=== PATIENT | male | born 1980 | race Caucasian/White ===

== ENCOUNTER 2023-03-12 04:01 | Inpatient (IN) | payer OTHER, SELFPAY ==
[2023-03-12] VITALS (27 sets, daily range): BP systolic 121–172; BP diastolic 57–112; PULSE 77–115; RESP 11–20; TEMP 36.6–37.1; O2SAT 93–99; BMI 33.2; BMI 32.7
--- NOTE | ~2023-03-12 | CT_ITS ---
EXAMINATION: CT HEAD WITHOUT CONTRAST CLINICAL INFORMATION: Status post CVA. COMPARISON: Head CT dated 03/12/2023. TECHNIQUE: Contiguous axial imaging was performed from the skull base to vertex without intravenous administration of contrast. Coronal and sagittal reformatted images were obtained. This CT examination was performed using dose optimization techniques as appropriate, variously including the following: *Automated exposure control *Adjustment of mA and/or kV according to patient size (this includes techniques or standardized protocols for targeted exams where dose is matched to indication/reason for exam; i.e. extremities or head) *Use of iterative reconstruction technique DLP: 656 mGy-cm FINDINGS: The cortical sulci are normal. The lateral ventricles are symmetrical. The third and fourth ventricles are in their normal midline position. The basilar and prepontine cisterns are unremarkable. There is no acute intra or extracerebral abnormality. There is no mass effect or midline shift. Sections through the bony calvarium are unremarkable. The paranasal sinuses are clear. The bony orbits and orbital contents are unremarkable. CT/CT head/brain wo IV con IMPRESSION: No acute intracranial pathology.
--- NOTE | ~2023-03-12 | CT_ITS ---
EXAMINATION: CTA NECK WITH CONTRAST (STROKE) CTA BRAIN WITH CONTRAST (STROKE) CLINICAL INFORMATION: Acute CVA, aphasia COMPARISON: Noncontrast head CT from just prior TECHNIQUE: Test bolus sequences followed by intravenous administration 70 mL of Omnipaque 350. Helical imaging was performed in the axial plane from the thoracic inlet to the skull vertex. Delayed postcontrast imaging of the head was also performed. The data was processed at the nuclear medical technologist's workstation for generation of MIP sequences. Angled MIPs and volume rendered reformatted images were also generated at an offline 3D workstation. Stenoses are assessed in accordance with NASCET criteria unless otherwise indicated. DOSE LOWERING TECHNIQUES: This CT examination was performed using dose optimization techniques as appropriate, variously including the following: - Automated exposure control - Adjustment of mA and/or kV according to patient size (this includes techniques or standardized protocols for targeted exams were dose is matched to indication/reason for exam; i.e. extremities or head) - Use of iterative reconstruction technique DLP: 1580 mGy-cm FINDINGS: Neck CTA: Normal appearance of the visualized aortic arch and proximal branches. No evidence of stenosis at the branch origins. The left vertebral artery arises off the aortic arch, an anatomic variant. Both vertebral arteries are widely patent throughout their extracranial cervical course. Normal appearance of the common and internal carotid arteries without focal stenosis. Brain CTA: Normal appearance of the intradural vertebral arteries. Normal appearance of the basilar and superior arteries. There is origin of the right posterior cerebral artery. Normal opacification of the posterior cerebral arteries bilaterally. Normal appearance of the intradural internal carotid arteries without focal stenosis. Normal appearance of the anterior cerebral and middle cerebral arteries without focal occlusion or stenosis. Normal anterior communicating artery. Normal arborization of the middle cerebral arteries. CT Head: No intracranial mass, hemorrhage, extra-axial collection, or midline shift. The child-white matter differentiation is preserved. On the delayed series there is relative hypoattenuation within some regions of the left cerebral hemisphere as compared to the right, such as the inferior left temporal lobe, though this may be artifactual in nature as this is not apparent on the CTA series. No pathologic intra-axial enhancement or regional oligemia. No hydrocephalus. The mastoid air cells and paranasal sinuses remain well aerated. CT Neck: The thyroid gland and remaining cervical soft tissues are normal in appearance. Mild disc space narrowing and endplate osteophyte formation in the lower cervical spine. Upper Chest: No abnormalities in the visualized lung apices or upper mediastinum. CT/CT angio head neck stroke IMPRESSION: 1. No large vessel occlusion or significant stenosis in the intracranial circulation. 2. Relative hypoattenuation within some regions of the left cerebral hemisphere on the delayed series may be artifactual in nature. However, in the setting of aphasia, MRI is advised for further evaluation. This critical result was discussed with Dr. Shaver on 03/12/2023 4:25 AM, and it was ascertained that the content and urgency of the report was understood at the time of direct communication.
--- NOTE | ~2023-03-12 | MR_ITS ---
MRI OF THE BRAIN WITHOUT IV CONTRAST INDICATION: Aphasia. Post tpa. COMPARISON: Head CT 03/12/2023. CTA head and neck from the same day. TECHNIQUE: Multiplanar multisequence MR imaging of the brain was obtained without IV contrast. FINDINGS: There is no hydrocephalus, extra-axial surface collection, or herniation. The major flow voids at the skull base are preserved. There is no acute infarct on diffusion-weighted imaging. There is no intracranial hemorrhage on the gradient recalled echo acquisition. Empty sella. The cerebellar tonsils are normally positioned. The cerebellum and brainstem are normal. The craniocervical junction is normal. Osseous marrow signal intensity is homogenous. The visualized soft tissues are unremarkable. MR/MR head/brain wo con IMPRESSION: No acute intracranial findings. No acute infarcts. Previously questioned CT findings within the left temporal lobe artifactually related to streak artifact. There is no parenchymal signal abnormality within the temporal lobes on MRI. Empty sella.
--- NOTE | ~2023-03-12 | CT_ITS ---
EXAMINATION: CT HEAD WITHOUT CONTRAST (STROKE PROTOCOL) INDICATION INFORMATION: Aphasia, acute CVA COMPARISON: None TECHNIQUE: Noncontrast CT of the head was performed. DLP: 890 mGy-cm DOSE LOWERING TECHNIQUES: This CT examination was performed using dose optimization techniques as appropriate, variously including the following: - Automated exposure control - Adjustment of mA and/or kV according to patient size (this includes techniques or standardized protocols for targeted exams were dose is matched to indication/reason for exam; i.e. extremities or head) - Use of iterative reconstruction technique FINDINGS: Slightly limited evaluation in some regions due to motion artifact. There is no evidence of acute intracranial hemorrhage or territorial infarction. No abnormal mass-effect or midline shift is seen. [place] to white matter differentiation is well preserved. No extra-axial fluid collections are identified. The ventricles are normal in size. There is no abnormal attenuation within the brain parenchyma. The osseous structures and soft tissues are normal. The mastoid air cells and visualized portions of the paranasal sinuses are well-aerated. CT/CT head for stroke IMPRESSION: No acute intracranial findings. This critical result was discussed with Dr. Shaver on 03/12/2023 4:25 AM, and it was ascertained that the content and urgency of the report was understood at the time of direct communication.
--- NOTE | ~2023-03-12 | CT_ITS ---
EXAMINATION: CT HEAD WITHOUT CONTRAST CLINICAL INFORMATION: Speech deficits. COMPARISON: Head CTA dated 04/01/2023. TECHNIQUE: Contiguous axial imaging was performed from the skull base to vertex without intravenous administration of contrast. Coronal and sagittal reformatted images were obtained. This CT examination was performed using dose optimization techniques as appropriate, variously including the following: *Automated exposure control *Adjustment of mA and/or kV according to patient size (this includes techniques or standardized protocols for targeted exams where dose is matched to indication/reason for exam; i.e. extremities or head) *Use of iterative reconstruction technique DLP: 684 mGy-cm FINDINGS: The cortical sulci are normal. The lateral ventricles are symmetrical. The third and fourth ventricles are in their normal midline position. The basilar and prepontine cisterns are unremarkable. There is no acute intra or extracerebral abnormality. There is no mass effect or midline shift. Sections through the bony calvarium are unremarkable. The paranasal sinuses are clear. The bony orbits and orbital contents are unremarkable. CT/CT head/brain wo IV con IMPRESSION: No acute intracranial pathology.
--- NOTE | 2023-03-12 04:04 | ECG_ITS ---
Test Reason : stroke Blood Pressure : / mmHG Vent. Rate : 100 BPM Atrial Rate : 100 BPM P-R Int : 158 ms QRS Dur : 080 ms QT Int : 372 ms P-R-T Axes : 040 012 027 degrees QTc Int : 479 ms Normal sinus rhythm Normal ECG No previous ECGs available Referred By: Oren Andre Electronically Signed By:HIRAM SMITH MD
--- NOTE | 2023-03-12 04:07 | ED.NEUROSD ---
HPI - Neuro Symptoms/Deficit General Chief Complaint: Stroke Stated Complaint: Stroke Alert Time Seen by Provider: 03/12/23 04:03 Source: EMS Mode of arrival: EMS Limitations: altered mental status History of Present Illness HPI Narrative: Patient no significant past medical history went to bed at 00:30 workup at 330 girlfriend noticed his standing next to the bed rubbing his hand not able to speak had expressive aphasia when EMS arrived no focal weakness noted no history of seizures no substance abuse Related Data Allergies Allergy/AdvReac Type Severity Reaction Status Date / Time No Known Allergies Allergy Verified 03/12/23 04:04 Review of Systems Review of Systems: Yes Unobtainable due to mental status PMFSH Social History Social History Advance Directives: No Advance Directives Information Provided: Yes Physical Exam Vital Signs: Vital Signs: Last Vital Signs Temp 98 F 03/12/23 04:02 Pulse 97 03/12/23 06:45 Resp 19 03/12/23 06:45 BP 156/111 H 03/12/23 06:45 Pulse Ox 95 03/12/23 06:45 O2 Del Method Room Air 03/12/23 06:45 BMI result Body Mass Index 33.2 Appearance: Alert. And awake No acute distress. Eyes: PERRLA, No Nystagmus ENT: Pharynx normal. Oral Mucosa moist Neck: Normal inspection. Neck supple. CVS: Normal heart rate and rhythm. Pulses normal. Respiratory: No respiratory distress. Equal air entry bilateral, no wheezing/rales/rhonchi Abdomen: Soft and nontender. Bowel sounds are present, no mass palpable, no CVA tenderness Skin: Skin warm and dry. Normal skin color. Normal skin turgor. Extremities: No lower extremity edema. No calf tenderness Neuro: Awake. No motor deficit. No sensory deficit.No cerebellar signs , cranial nerves II-XII intact severe expressive aphasia able to speak his name unable to understand any questions no facial deformity Medications Administered Discontinued Medications Generic Name Dose Route Start Last Admin Trade Name Freq PRN Reason Stop Dose Admin Alteplase, Recombinant 90 mg 03/12/23 04:22 03/12/23 04:41 Alteplase 100 Mg Vial IV 03/12/23 04:23 90 mg ONCE ONE Administration Iohexol 70 ml 03/12/23 04:27 03/12/23 04:27 Iohexol 350 Mg/Ml 100 Ml Infus..Btl IV 03/12/23 04:28 70 ml ONCE ONE Administration Medical Decision Making Medical Decision Making [facility] Narrative: 430 amPatient acute CVA onset between midnight and 04:00 with severe aphasia disease with Dr. Shelby neurologist advised tPA 6am patient post tPA talking to his girlfriend now back to normal no aphasia no motor deficit does not remember what happened? cva vs seizures case to Dr. Shelby again will stop by in the ER and evaluate the patient Lab Data [facility] Lab Attestation statement: I reviewed the patient's lab results. 03/12/23 04:35 03/12/23 04:35 Labs: Lab Results 03/12/23 03/12/23 03/12/23 Range/Units 04:06 04:35 04:35 WBC 7.6 (4.8-10.8) X10*3/uL RBC 4.86 (4.60-5.80) X10*6/uL Hgb 15.2 (14.0-18.0) g/dl Hct 43.1 (42.0-52.0) % MCV 88.7 (80.0-98.0) fL MCH 31.3 (27.0-33.0) pg MCHC 35.3 (31.0-36.0) g/dl RDW 12.3 (11.0-16.0) % Plt Count 147 L (160-400) X10*3/uL MPV 9.5 (9.4-12.4) fL Immature Gran % (Auto) 0.5 H (0.0-0.4) % Neut % (Auto) 75.4 H (45-73) % Lymph % (Auto) 13.9 L (20-40) % Latimer % (Auto) 6.5 (2-11) % Eos % (Auto) 2.9 (0-4) % Baso % (Auto) 0.8 (0-2) % Lymph # (Auto) 1.1 L (1.2-4.9) X10*3/uL Latimer # (Auto) 0.5 (0.1-1.2) X10*3/uL Eos # (Auto) 0.2 (0.0-0.4) X10*3/uL Baso # (Auto) 0.1 (0.0-0.2) X10*3/uL Abs Immat Gran (auto) 0.04 H (0.00-0.03) X10*3/uL Absolute Neuts (auto) 5.7 (2.0-8.3) x10*3/uL Absolute Nucleated RBC 0.000 (0.0-0.012) X10*3/uL Nucleated RBC % (auto) 0.0 (0.0-0.2) /100WBC PT 11.5 (10.0-13.1) SEC Whole Blood PT 12.4 (11.1-13.5) sec INR 1.0 (0.9-1.1) Whole Blood INR 1.0 (0.9-1.1) APTT 31.6 (26.0-36.4) SEC Sodium (135-145) mmol/L Potassium (3.3-5.1) mmol/L Chloride (96-108) mmol/L Carbon Dioxide (22-29) mmol/L Anion Gap (12-20) BUN (9-16) mg/dL Creatinine (0.5-1.4) mg/dL Estim Creat Clear Calc Estimated GFR Random Glucose (60-115) mg/dL Calcium (8.4-10.2) mg/dL Total Creatine Kinase (38-174) U/L Troponin I High Sens (<3.5-35.0) ng/L 03/12/23 03/12/23 Range/Units 04:35 04:35 WBC (4.8-10.8) X10*3/uL RBC (4.60-5.80) X10*6/uL Hgb (14.0-18.0) g/dl Hct (42.0-52.0) % MCV (80.0-98.0) fL MCH (27.0-33.0) pg MCHC (31.0-36.0) g/dl RDW (11.0-16.0) % Plt Count (160-400) X10*3/uL MPV (9.4-12.4) fL Immature Gran % (Auto) (0.0-0.4) % Neut % (Auto) (45-73) % Lymph % (Auto) (20-40) % Latimer % (Auto) (2-11) % Eos % (Auto) (0-4) % Baso % (Auto) (0-2) % Lymph # (Auto) (1.2-4.9) X10*3/uL Latimer # (Auto) (0.1-1.2) X10*3/uL Eos # (Auto) (0.0-0.4) X10*3/uL Baso # (Auto) (0.0-0.2) X10*3/uL Abs Immat Gran (auto) (0.00-0.03) X10*3/uL Absolute Neuts (auto) (2.0-8.3) x10*3/uL Absolute Nucleated RBC (0.0-0.012) X10*3/uL Nucleated RBC % (auto) (0.0-0.2) /100WBC PT (10.0-13.1) SEC Whole Blood PT (11.1-13.5) sec INR (0.9-1.1) Whole Blood INR (0.9-1.1) APTT (26.0-36.4) SEC Sodium 141 (135-145) mmol/L Potassium 4.2 (3.3-5.1) mmol/L Chloride 107 (96-108) mmol/L Carbon Dioxide 25 (22-29) mmol/L Anion Gap 13 (12-20) BUN 13 (9-16) mg/dL Creatinine 1.12 (0.5-1.4) mg/dL Estim Creat Clear Calc 111.6 Estimated GFR > 60 Random Glucose 118 H (60-115) mg/dL Calcium 9.2 (8.4-10.2) mg/dL Total Creatine Kinase 75 (38-174) U/L Troponin I High Sens < 2.7 (<3.5-35.0) ng/L Independent Interpretation I performed an independent interpretation of an: EKG Interpretation: Normal sinus rhythm heart rate 100 beats per minute normal interval normal axis no acute ST-T no acute ischemic Radiology Impression Discussion of test interpretation with radiology: I discussed test interpretation with the radiologist and I have reviewed the radiologist's reading. Radiologist Impression: CT/CT angio head? neck stroke IMPRESSION: 1.? No large vessel occlusion or significant stenosis in the intracranial circulation. 2.? Relative hypoattenuation within some regions of the left cerebral hemisphere on the delayed series may be artifactual in nature. However, in the setting of aphasia, MRI is advised for further evaluation. ? This critical result was discussed with Dr. Shaver on 03/12/2023 4:25 AM, and it was ascertained that the content and urgency of the report was understood at the time of direct communication. NIH Stroke Scale Internal: Initial- Upon Arrival Time: 04:06 Level of Consciousness: Alert Level of Consciousness Questions: Answers neither question correctly Level of Consciousness Commands: Performs neither task correctly Best Gaze: Normal Visual: No visual loss Facial Palsy: Normal Motor Arm (Right): No drift Motor Arm (Left): No drift Motor Leg (Right): No drift Motor Leg (Left): No drift Limb Ataxia: Absent Sensory: Normal Best Language: Severe aphasia Dysarthia: Mild to moderate dysarthria Extinction and Inattention: No abnormality Score: 7 Discharge Plan Discharge Clinical Impression: Cerebrovascular accident Patient Disposition: Still a Patient
[2023-03-12 04:11] LABS: Prothrombin Time Whole Bld POC 12.4 sec (11.1-13.5)
[2023-03-12] MEDS: iohexoL 350 MG/ML 100 ML INFUS..BTL 70 ML IV (04:27)
[2023-03-12 04:40] LABS: Basophils Absolute Auto 0.1 X10*3/uL (0.0-0.2); Basophils Percent Auto 0.8 % (0-2); Eosinophils Absolute Auto 0.2 X10*3/uL (0.0-0.4); Eosinophils Percent Auto 2.9 % (0-4); Hematocrit 43.1 % (42.0-52.0); Hemoglobin 15.2 g/dl (14.0-18.0); Imm Gran Abs Auto 0.04 X10*3/uL (0.00-0.03); Imm Gran Pct Auto 0.5 % (0.0-0.4); Lymphocytes Absolute Auto 1.1 X10*3/uL (1.2-4.9); Lymphocytes Percent Auto 13.9 % (20-40); MANUAL DIFF FLAG NO; Mean Corpuscular HGB Conc 35.3 g/dl (31.0-36.0); Mean Corpuscular Hemoglobin 31.3 pg (27.0-33.0); Mean Corpuscular Volume 88.7 fL (80.0-98.0); Mean Platelet Volume 9.5 fL (9.4-12.4); Monocytes Absolute Auto 0.5 X10*3/uL (0.1-1.2); Monocytes Percent Auto 6.5 % (2-11); Neutrophils Absolute Auto 5.7 x10*3/uL (2.0-8.3); Neutrophils Percent Auto 75.4 % (45-73); Platelet Count 147 X10*3/uL (160-400); Red Blood Count 4.86 X10*6/uL (4.60-5.80); Red Cell Distribution Width 12.3 % (11.0-16.0); White Blood Count 7.6 X10*3/uL (4.8-10.8)
--- NOTE | 2023-03-12 04:41 | PC.NURSE ---
9 mg TPA bolus administered at this time.
--- NOTE | 2023-03-12 04:42 | PC.NURSE ---
81 mg Tpa infusion initiated at this time.
--- NOTE | 2023-03-12 04:44 | PC.NURSE ---
9 mg TPA bolus administered at this time.
[2023-03-12 04:49] LABS: Prothrombin Time 11.5 SEC (10.0-13.1)
[2023-03-12 04:52] LABS: Partial Thromboplastin Time 31.6 SEC (26.0-36.4)
[2023-03-12 04:57] LABS: Anion Gap 13 (12-20); Blood Urea Nitrogen 13 mg/dL (9-16); Calcium 9.2 mg/dL (8.4-10.2); Carbon Dioxide 25 mmol/L (22-29); Chloride 107 mmol/L (96-108); Creatinine Clr Calc Pharmacy 111.6; Estimated Glomerular Filt Rate > 60; Glucose Random 118 mg/dL (60-115); Potassium 4.2 mmol/L (3.3-5.1); Sodium 141 mmol/L (135-145)
[2023-03-12 05:00] LABS: Troponin-I High Sensitivity < 2.7 ng/L (<3.5-35.0)
[2023-03-12 05:01] LABS: Stroke Lab Use COMPLETE
--- NOTE | 2023-03-12 05:15 | PC.NURSE ---
Pt with memory improvement at this time. Now alert and oriented to person, place. Unsure of situation and exact time but however able to tell this RN month and year.
--- NOTE | 2023-03-12 05:40 | PC.NURSE ---
Pt again noted to be diaphoretic. Denies any pain. Mental status unchanged.
--- NOTE | 2023-03-12 06:51 | PC.NURSE ---
Bruise forming to right lower leg proximal to knee. Per significant other at bedside, pt hit same leg on nightstand earlier in the morning.
--- NOTE | 2023-03-12 07:00 | CA_ITS ---
Transthoracic Echocardiogram Patient (Last, First, Middle): Bandar Marquez, Gender: Male Date of : 1980 Age: 42 Procedure Date: 03/12/2023 Procedure Type: Transthoracic Echocardiogram Location: ICU Height: 182.88 cm Weight: 110.68 kg BSA: 2.32 m2 Heart Rate: bpm BP: 147 / 88 mmHg Inspector Watch Parts: Referring MD: Omaira Castillo MD Head Of History: Shree Vazquez MD Symptoms: acute cva, needs bubble Study Quality: Good ECG Rhythm: Sinus Conclusions: - 1. Normal LV systolic function with normal diastolic filling pattern 2. Possible PFO noted on bubble contrast study, recommend JENNIFFER 3. Normal cardiac valvular Dopplers next 4. Normal RV systolic pressure 5. No gross pericardial effusion Findings Left Ventricle Normal left ventricular size, thickness, and systolic function. The visually estimated ejection fraction is between 60-65%. Spectral Doppler is indicative of a normal filling pattern. E/E prime ratio is <8, consistent with normal filling pressures. Right Ventricle Normal right ventricular cavity size and systolic function. Atria Both atria are normal in size. Contrast study for right to left shunting is mildly positive. Patent foramen ovale detected using by contrast. There is evidence of a patent foramen ovale with right to left shunting. Aortic Valve The aortic valve structure and function is likely normal. There is no aortic valve stenosis. There is no aortic valve regurgitation. Mitral Valve Normal mitral valve structure and function. There is trace mitral valve regurgitation. There is no mitral valve stenosis. Pulmonic Valve The pulmonic valve is likely normal. Tricuspid Valve Normal tricuspid valve structure. There is trace tricuspid valve regurgitation. The right ventricular systolic pressure is normal. The right ventricular systolic pressure is 21 mmHg. Normal right atrial pressure. There is no evidence of pulmonary hypertension. Great Vessels All visible segments of the aorta are normal in size. The pulmonary artery was not well visualized. Venous The inferior vena cava is normal in size and collapses greater than 50% with inspiration. Pericardium/Pleural There is no evidence of pericardial effusion. Recommendations, Care & Conclusions Recommend a JENNIFFER. Measurements 2D Linear Measurements IVSd: 0.84 0.6-0.9/0.6-1.0 cm LVIDd: 3.59 3.9-5.3/4.2-5.9 cm LVIDd Index: 1.55 2.4-3.2/2.2-3.1 cm/m2 LVIDs: 2.19 2.0-3.6 cm LVPWd: 0.87 0.7-1.1 cm Ao Root: 3.30 2.1-3.5 cm LA Diam: 3.10 2.7-3.8/3.0-4.0 cm LAIDs Index: 1.34 1.5-2.3 cm/m2 LV Mass: 182.18 67-162/88-224 g LV Mass Index: 78.53 43-95/49-115 g/m2 LVOT Diam: 2.10 3.0+(-)1.3 cm Mitral Valve MV Pk E: 0.78 MV PK A: 0.91 MV Decel Time: 222.00 E/A: 0.90 E'Lateral: 10.30 E'Medial: 9.36 E/E' Med: 8.30 E/E' Lat: 7.50 PHT: 65.00 MVA PHT: 3.38 Decel Moore: 3.50 Aortic Valve AoV Pk Melvin: 1.45 AoV Mn Melvin: 0.92 AoV VTI: 0.30 AoV Pk Grad: 8.00 Aov Mn Grad: 4.00 FLORECITA Cont.VTI: 2.37 LVOT LVOT Pk Melvin: 1.04 LVOT Mn Melvin: 0.67 LVOT VTI: 0.20 LVOT Pk Grad: 4.00 LVOT Mn Grad: 2.00 LVOT Diam: 2.10 LVOT Area: 3.46 Diastolic Function MV Pk E: 0.78 MV Pk A: 0.91 E/A: 0.90 E'Medial: 9.36 E/E' Med: 8.30 E' Laterial: 10.30 E/E' Lat: 7.50 Right Ventricle TAPSE (mm): 26.00 TVS' Melvin: 14.00 Tricuspid Valve TR Pk Melvin: 2.15 TR Pk Grad: 18.00 RA Press: 3.00 RVSP: 21.00 Great Vessels Aorta Ao Root-2D: 3.30 2.0-3.7 cm Ao Asc: 3.30 2.1-3.4 cm Ao Arch: 2.90 Pulmonary Valve PV Pk Melvin: 1.04 Peak PV Grad: 4.00 Updated in Other Vendor System with Status of Final Shree Vazquez MD electronically signed on 03/12/2023 5:13:00 PM with status of Final
--- NOTE | 2023-03-12 07:04 | PC.NURSE ---
Report to [facility] for continued care.
[2023-03-12 07:19] LABS: Glucose, Whole Blood 138 mg/dL (60-115)
--- NOTE | 2023-03-12 07:30 | PC.NURSE ---
pt is a/o x 3 no sob/obed noted speaks in full sentences. diaphoretic. neuro checks - wnl. pt/girlfriend aware of plan of care.
--- NOTE | 2023-03-12 08:34 | PC.NURSE ---
pt to mri with rn via stretcher.
--- NOTE | 2023-03-12 08:46 | P.CNNE_ITS ---
History of Present Illness Data of Consult Service Date: 03/12/23 Primary Care Provider: Unknown Physician HPI Reason for consult: Difficulty speaking 42 years old man who came last night to hospital emergency room with sudden onset of difficulty speaking. He was having headache for couple of days. He denied taking any illicit drugs or drinking alcohol or recent trauma. In emergency room he was noted to be in aphasic and not in confused state and with diagnosis of possible ischemic infarction treated with intravenous tPA. After treatment his situation improved but then he also started saying that he did not remember what had happened. Review of Systems Review of Systems: No recent cold or flu-like illness PMFSH Social History Social History Advance Directives: No Advance Directives Information Provided: Yes Meds Allergies Allergy/AdvReac Type Severity Reaction Status Date / Time No Known Allergies Allergy Verified 03/12/23 04:04 Physical Exam Vital Signs: Vital Signs: Last Vital Signs Temp 98.4 F 03/12/23 08:14 Pulse 115 H 03/12/23 08:14 Resp 13 03/12/23 08:14 BP 133/96 H 03/12/23 08:14 Pulse Ox 94 03/12/23 08:14 O2 Del Method Room Air 03/12/23 08:14 BMI result Body Mass Index 33.2 Neuro: Other: He is alert and awake anxious in somewhat vague affect. Spontaneity and fluency of speech are slightly diminished. He has slight difficulty with reputation. He is able to name. Comprehension is intact. Face is symmetrical. Visual viramontes are full. There is minimal right pronator drift. Deep tendon reflexes are absent with flat plantars. Results Labs 03/12/23 04:35 03/12/23 04:35 Labs: Short CBC 03/12/23 Range/Units 04:35 WBC 7.6 (4.8-10.8) X10*3/uL Hgb 15.2 (14.0-18.0) g/dl Hct 43.1 (42.0-52.0) % Plt Count 147 L (160-400) X10*3/uL BMP 03/12/23 04:35 Sodium 141 Potassium 4.2 Chloride 107 Carbon Dioxide 25 BUN 13 Creatinine 1.12 Calcium 9.2 Cardiac Enzymes 03/12/23 Range/Units 04:35 Total Creatine Kinase 75 (38-174) U/L Noncontrast head CT did not reveal any significant abnormality. CTA did not reveal any vascular lesion. Assessment and Plan (1) Encephalopathy: Status: Acute 42 years old man whose initial presentation suggested motor aphasia and with te ntative diagnosis of ischemic infarction he was treated with intravenous tPA. He has improved but still has mild motor aphasia, vague affect, and did not remember what happened last night. Imaging did not reveal any significant abnormality. At this time, precise diagnosis is unclear and differential diagnosis included cerebral infarction or an alternate brain lesion, seizure disorder, or an inflammatory or infectious conditions my recommendation at this time is to obtain an MRI of brain with and without contrast, urine tox screen, Lyme test, HIV test, syphilis serology, and sed rate. An EEG is also recommended. Time Spent With Patient Time: Total time managing care of this patient today ____ minutes. Procedures Date of Service Date of Service: 03/12/23
--- NOTE | 2023-03-12 09:32 | PC.NURSE ---
pt to ct scan via stretcher.
--- NOTE | 2023-03-12 09:42 | PC.NURSE ---
pt returned from ct scan.
--- NOTE | 2023-03-12 10:46 | PC.NURSE ---
pt seen by phani (stroke rn) pt aware of plan of care for admission to hosp.
--- NOTE | 2023-03-12 11:18 | MHC.STROKE ---
Addendum entered by Ana Rueda RN 03/12/23 15:53: CTH was negative for bleed, no adverse reactions from TPA-Alteplase. Reviewed case again with Dr. Nino, MRI findings negative for acute stroke. Dr. Nino said the vitals and neuro signs can be changed to Q4hr. i relayed this to JING Durán. Addendum entered by Ana Rueda RN 03/12/23 13:08: 1215 I RECEIVED A CALL FROM [facility] CARING FOR THE PATIENT AND HE IS C/O A SLIGHT RIGHT HEADACHE 01/17, VITAL STABLE. I INSTRUCTED HER TO NOTIFY DR. SKY. I WENT TO EXAMINE THE PATIENT AND HE DOES C/O OF A SLIGHT RIGHT FRONTAL HEADACHE, PER PROTOCOL - DR SKY HAS ORDERED A CTH. HE SAID THIS IS SIMILAR TO HIS MIGRAINE, ?CAFFEINE WITHDRAWAL. I WILL CONTINUE TO FOLLOW. Original Note: 0352 EMS PRE-NOTIFICATION STROKE ALERT . 0401 ARRIVED AT [facility] [place]. SEEN BY PROVIDER AT 0403, STROKE PROTOCOL ACTIVATED, NIHSS = 7, LOC AND APHASIA. CT, CTA H/N DONE. NO BLEED, NO LVO. SEE ED NOTES, CONSULTED STROKE NEUROLOGIST, NO EXCLUSIONS FOR TPA-ALTEPLASE, ALTEPLASE 9MG IV BOLUS GIVEN AT 0441 FOLLOW BY 81MG/HR DRIP OVER 1 HOUR. DTN = 40 MINUTES, OVER 30 MINUTES DUE TO CLARIFICATION OF STROKE DIAGNOSIS, ?SEIZURE, HISTORY OF MIGRAINES. I MET WITH THE PATIENT AND SO. SHE SAID HE WENT TO BED AROUND 00:30, HE WOKE AROUND 02:45-03:00 AND WAS JUST STANDING THERE UNABLE TO SPEAK, SHE WAS GOING TO DRIVE HIM IN BUT HE COULDN'T EVEN REMEMBER HOW TO WALK. HE HAS NO MEMORY OF THIS EVENT. A, HE ADMITS TO DRINKING 3-4 ENERGY DRINKS DAILY, HE ALSO DRINKS ALCOHOL 4 12OZ VODKA SPRITZ DRINKS DAILY. 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 HISTORY OF MIGRAINES SINCE HE WAS A YOUNG. NO FAMILY HISTORY OF STROKE. I REVIEWED THE PALN OF CARE WITH HIM AND HIS SIGNIFICANT OTHER. ANSWERED ALL THEIR QUESTIONS AND INITIATED STROKE EDUCATION, REVIEWED THE BOOKLET, S&S OF STROKE , CALLING 911, AND HIS INDIVIDUAL RISK FACTORS, MIGRAINES , ETOH, ENERGY DRINK, OBESITY. I REVIEWED ALL OF THIS INFORMATION WITH DR. NINO AND JOSE DANIEL POWELL. HE WILL ADMITTED TO ICU. MRI REVIEWED AND NO ACUTE STROKE IDENTIFIED, OTHER LABS, EEG, ECHO WITH BUBBLE TESTING WILL BE DONE. I WILL CONTINUE TO FOLLOW.
[2023-03-12 11:32] LABS: Ethanol < 10 mg/dL
[2023-03-12 11:37] LABS: Glucose, Whole Blood 120 mg/dL (60-115)
--- NOTE | 2023-03-12 11:56 | PC.NURSE ---
rn to rn report given to tobias. pt and girlfriend aware of plan of care for transfer to icu.
[2023-03-12 11:57] LABS: HIV AB/AG Nonreactive (Nonreactive); HIV Num 1 0.53 S/CO (0.00-0.99)
[2023-03-12 11:58] LABS: Syphilis Screen Nonreactive (Nonreactive)
[2023-03-12 12:08] LABS: Erythrocyte Sedimentation Rate 5 MM/HR (0-15)
--- NOTE | 2023-03-12 12:29 | PC.NURSE ---
pt amb (i) gait steady to bathroom with girlfriend (in bathroom) and rn at the door. pt/girlfriend aware of plan of care.
[2023-03-12 12:35] LABS: Amphetamine Screen Urine Not Detected (Not Detect); Barbiturates, Urine Not Detected (Not Detect); Benzodiazepines Screen Urine Not Detected (Not Detect); Cannabinoid Screen Urine Not Detected (Not Detect); Cocaine Screen Urine Not Detected (Not Detect); Fentanyl, urine Not Detected (Not Detect); Opiate Screen Urine POSITIVE (Not Detect); Phencyclidine Screen Urine POSITIVE (Not Detect)
--- NOTE | 2023-03-12 13:54 | PC.NURSE ---
pt at ct scan via stretcher.
--- NOTE | 2023-03-12 14:28 | PHA.MEDREC ---
Pharmacy Consult ? Medication Reconciliation Pharmacy has completed the medication reconciliation.
--- NOTE | 2023-03-12 15:05 | PC.NURSE ---
echocardiogram is being done at bed. pt tolerate well.
[2023-03-12 15:09] LABS: Adenovirus PCR Not Detected (Not Detect.); Bordetella parapertussis PCR Not Detected (Not Detect.); Bordetella pertussis PCR Not Detected (Not Detect.); Chlamydia pneumoniae PCR Not Detected (Not Detect.); Coronavirus 229E PCR Not Detected (Not Detect.); Coronavirus HKU1 PCR Not Detected (Not Detect.); Coronavirus NL63 PCR Not Detected (Not Detect.); Coronavirus OC43 PCR Not Detected (Not Detect.); Human metapneumovirus PCR Not Detected (Not Detect.); Influenza A PCR Not Detected (Not Detect.); Influenza B PCR Not Detected (Not Detect.); Mycoplasma pneumoniae PCR Not Detected (Not Detect.); Parainfluenza 1 PCR Not Detected (Not Detect.); Parainfluenza 2 PCR Not Detected (Not Detect.); Parainfluenza 3 PCR Not Detected (Not Detect.); Parainfluenza 4 PCR Not Detected (Not Detect.); RSV PCR Not Detected (Not Detect.); Rhino/Enterovirus PCR Not Detected (Not Detect.); SARS-CoV-2 PCR Not Detected (Not Detect.)
--- NOTE | 2023-03-12 15:58 | P.HPCC_ITS ---
History of Present Illness Date of Service: 03/12/23 Attending physician on admission: Omaira Castillo Chief Complaint: acute confusion 42-year-old male last noted to be normal a little after midnight apparently awoke somewhere between 3 and 330 and what was interpreted as aphasia but there was definitely a degree of confusion and the this might have been a form of encephalopathy but no fever no chills and ultimately had a negative CT scan of his head but had a follow-up MRI which was completely within normal limits but he received tPA shortly thereafter he improved but the vega issue here is that he did not remember at all what happened it sounds like retrograde amnesia which m akes me suspect that this could be a postictal problem Review of Systems Review of Systems: Yes Unobtainable due to mental status PMFSH Social History Social History Patient Tobacco Use Status: Tobacco use Unknown Advance Directives: No Advance Directives Information Provided: Yes Nutrition Risks: No Nutritional Risk Meds Allergies Allergy/AdvReac Type Severity Reaction Status Date / Time No Known Allergies Allergy Verified 03/12/23 04:04 Active Medications: Current Medications Sodium Chloride (0.9 % Sodium Chloride Flush 3 Ml Syringe) 3 ml IVFLUSH [facility] Home Medications Medication Instructions Recorded Confirmed Last Taken Type cetirizine 10 mg tablet (Zyrtec) 10 mg PO DAILY PRN Allergy Symptoms 03/12/23 03/12/23 Unknown History melatonin 5 mg tablet 5 mg PO BEDTIME 03/12/23 03/12/23 03/11/23 History Physical Exam Vital Signs: Vital Signs: Last Vital Signs Temp 98.4 F 03/12/23 14:05 Pulse 80 03/12/23 15:13 Resp 18 03/12/23 15:30 BP 132/90 H 03/12/23 15:13 Pulse Ox 99 03/12/23 15:13 O2 Del Method Room Air 03/12/23 15:13 BMI result Body Mass Index 33.2 awake and appropriate and nonfocal neurologically cardiac exam with good bilateral carotid upstrokes no bruits no neck vein distension no gallops or murmurs chest clear without event tissue sounds abdomen benign no organomegaly skin intact without apparent the bites or rash Results Labs 03/12/23 04:35 03/12/23 04:35 Labs: Laboratory Results - last 24 hr 03/12/23 03/12/23 03/12/23 04:05 04:06 04:35 MCV 88.7 MCH 31.3 MCHC 35.3 RDW 12.3 Plt Count 147 L MPV 9.5 Immature Gran % (Auto) 0.5 H Neut % (Auto) 75.4 H Lymph % (Auto) 13.9 L [place] % (Auto) 6.5 Eos % (Auto) 2.9 Baso % (Auto) 0.8 Lymph # (Auto) 1.1 L [place] # (Auto) 0.5 Eos # (Auto) 0.2 Baso # (Auto) 0.1 Abs Immat Gran (auto) 0.04 H Absolute Neuts (auto) 5.7 Absolute Nucleated RBC 0.000 Nucleated RBC % (auto) 0.0 ESR PT Whole Blood PT 12.4 INR Whole Blood INR 1.0 APTT Anion Gap Estim Creat Clear Calc Estimated GFR POC Glucose 138 H Random Glucose Calcium Total Creatine Kinase Troponin I High Sens Urine Opiates Screen Urine Fentanyl Screen Ur Barbiturates Screen Ur Phencyclidine Scrn Ur Amphetamines Screen U Benzodiazepines Scrn Urine Cocaine Screen U Marijuana (THC) Screen Ethyl Alcohol Respiratory Panel Mane T.pallidum Ab (EIA) Adenovirus (Rapid PCR) B.pert (TEM-PCR) B.parapertussis DNA PCR C. pneumoniae DNA (PCR) Coronavirus OC43 (PCR) Coronavirus HKU1 (PCR) Coronavirus 229E (PCR) Coronavirus NL63 (PCR) HIV 1&2 Ab/P24 Ag 4thGn Human Metapneumovir PCR Influenza A (RT-PCR) Influenza B (RT-PCR) M. pneumoniae (PCR) Parainfluenza 1 (PCR) Parainfluenza 2 (PCR) Parainfluenza 3 (PCR) Parainfluenza 4 (PCR) RSV (PCR) Entero/Rhino (PCR) SARS-CoV-2 RNA (RT-PCR) 03/12/23 03/12/23 03/12/23 04:35 04:35 04:35 MCV MCH MCHC RDW Plt Count MPV Immature Gran % (Auto) Neut % (Auto) Lymph % (Auto) [place] % (Auto) Eos % (Auto) Baso % (Auto) Lymph # (Auto) [place] # (Auto) Eos # (Auto) Baso # (Auto) Abs Immat Gran (auto) Absolute Neuts (auto) Absolute Nucleated RBC Nucleated RBC % (auto) ESR PT 11.5 Whole Blood PT INR 1.0 Whole Blood INR APTT 31.6 Anion Gap 13 Estim Creat Clear Calc 111.6 Estimated GFR > 60 POC Glucose Random Glucose 118 H Calcium 9.2 Total Creatine Kinase 75 Troponin I High Sens < 2.7 Urine Opiates Screen Urine Fentanyl Screen Ur Barbiturates Screen Ur Phencyclidine Scrn Ur Amphetamines Screen U Benzodiazepines Scrn Urine Cocaine Screen U Marijuana (THC) Screen Ethyl Alcohol < 10 Respiratory Panel Mane T.pallidum Ab (EIA) Adenovirus (Rapid PCR) B.pert (TEM-PCR) B.parapertussis DNA PCR C. pneumoniae DNA (PCR) Coronavirus OC43 (PCR) Coronavirus HKU1 (PCR) Coronavirus 229E (PCR) Coronavirus NL63 (PCR) HIV 1&2 Ab/P24 Ag 4thGn Human Metapneumovir PCR Influenza A (RT-PCR) Influenza B (RT-PCR) M. pneumoniae (PCR) Parainfluenza 1 (PCR) Parainfluenza 2 (PCR) Parainfluenza 3 (PCR) Parainfluenza 4 (PCR) RSV (PCR) Entero/Rhino (PCR) SARS-CoV-2 RNA (RT-PCR) 03/12/23 03/12/23 03/12/23 11:14 11:14 11:14 MCV MCH MCHC RDW Plt Count MPV Immature Gran % (Auto) Neut % (Auto) Lymph % (Auto) [place] % (Auto) Eos % (Auto) Baso % (Auto) Lymph # (Auto) [place] # (Auto) Eos # (Auto) Baso # (Auto) Abs Immat Gran (auto) Absolute Neuts (auto) Absolute Nucleated RBC Nucleated RBC % (auto) ESR 5 PT Whole Blood PT INR Whole Blood INR APTT Anion Gap Estim Creat Clear Calc Estimated GFR POC Glucose Random Glucose Calcium Total Creatine Kinase Troponin I High Sens Urine Opiates Screen Urine Fentanyl Screen Ur Barbiturates Screen Ur Phencyclidine Scrn Ur Amphetamines Screen U Benzodiazepines Scrn Urine Cocaine Screen U Marijuana (THC) Screen Ethyl Alcohol Respiratory Panel Mane T.pallidum Ab (EIA) Nonreactive Adenovirus (Rapid PCR) B.pert (TEM-PCR) B.parapertussis DNA PCR C. pneumoniae DNA (PCR) Coronavirus OC43 (PCR) Coronavirus HKU1 (PCR) Coronavirus 229E (PCR) Coronavirus NL63 (PCR) HIV 1&2 Ab/P24 Ag 4thGn Nonreactive Human Metapneumovir PCR Influenza A (RT-PCR) Influenza B (RT-PCR) M. pneumoniae (PCR) Parainfluenza 1 (PCR) Parainfluenza 2 (PCR) Parainfluenza 3 (PCR) Parainfluenza 4 (PCR) RSV (PCR) Entero/Rhino (PCR) SARS-CoV-2 RNA (RT-PCR) 03/12/23 03/12/23 03/12/23 11:34 11:56 11:56 MCV MCH MCHC RDW Plt Count MPV Immature Gran % (Auto) Neut % (Auto) Lymph % (Auto) [place] % (Auto) Eos % (Auto) Baso % (Auto) Lymph # (Auto) [place] # (Auto) Eos # (Auto) Baso # (Auto) Abs Immat Gran (auto) Absolute Neuts (auto) Absolute Nucleated RBC Nucleated RBC % (auto) ESR PT Whole Blood PT INR Whole Blood INR APTT Anion Gap Estim Creat Clear Calc Estimated GFR POC Glucose 120 H Random Glucose Calcium Total Creatine Kinase Troponin I High Sens Urine Opiates Screen POSITIVE H Urine Fentanyl Screen Not Detected Ur Barbiturates Screen Not Detected Ur Phencyclidine Scrn POSITIVE H Ur Amphetamines Screen Not Detected U Benzodiazepines Scrn Not Detected Urine Cocaine Screen Not Detected U Marijuana (THC) Screen Not Detected Ethyl Alcohol Respiratory Panel Mane See Note T.pallidum Ab (EIA) Adenovirus (Rapid PCR) Not Detected B.pert (TEM-PCR) Not Detected B.parapertussis DNA PCR Not Detected C. pneumoniae DNA (PCR) Not Detected Coronavirus OC43 (PCR) Not Detected Coronavirus HKU1 (PCR) Not Detected Coronavirus 229E (PCR) Not Detected Coronavirus NL63 (PCR) Not Detected HIV 1&2 Ab/P24 Ag 4thGn Human Metapneumovir PCR Not Detected Influenza A (RT-PCR) Not Detected Influenza B (RT-PCR) Not Detected M. pneumoniae (PCR) Not Detected Parainfluenza 1 (PCR) Not Detected Parainfluenza 2 (PCR) Not Detected Parainfluenza 3 (PCR) Not Detected Parainfluenza 4 (PCR) Not Detected RSV (PCR) Not Detected Entero/Rhino (PCR) Not Detected SARS-CoV-2 RNA (RT-PCR) Not Detected Imaging Radiologist's Impressions: Impressions Head CT 03/12/23 04:14 IMPRESSION: No acute intracranial findings. This critical result was discussed with Dr. Shaver on 03/12/2023 4:25 AM, and it was ascertained that the content and urgency of the report was understood at the time of direct communication. Head/Neck CTA 03/12/23 04:24 IMPRESSION: 1. No large vessel occlusion or significant stenosis in the intracranial circulation. 2. Relative hypoattenuation within some regions of the left cerebral hemisphere on the delayed series may be artifactual in nature. However, in the setting of aphasia, MRI is advised for further evaluation. This critical result was discussed with Dr. Shaver on 03/12/2023 4:25 AM, and it was ascertained that the content and urgency of the report was understood at the time of direct communication. Brain MRI 03/12/23 09:04 IMPRESSION: No acute intracranial findings. No acute infarcts. Previously questioned CT findings within the left temporal lobe artifactually related to streak artifact. There is no parenchymal signal abnormality within the temporal lobes on MRI. Empty sella. Head CT 03/12/23 09:51 IMPRESSION: No acute intracranial pathology. Head CT 03/12/23 14:14 IMPRESSION: No acute intracranial pathology. Assessment and Plan (1) Retrograde amnesia: Status: Acute (2) Encephalopathy: Status: Acute (3) Cerebrovascular accident: Status: Acute Plan with the repeat CT scan being negative in relation to the headache the patient can be now downgraded to IMCU and is resuming good diet should be observed for the possibility that this could have been new onset seizure activity with a postictal state and EEG is pending now that all the imaging has been negative Time Spent With Patient Time: Total time managing care of this patient today35 ____ minutes.
--- NOTE | 2023-03-12 15:59 | PC.NURSE ---
Contact made to phani hoang regarding down grading patient from ICU status. Per Dr. Shelby pt is okay to have Q4hr neuro checks.
[2023-03-12 17:29] LABS: Glucose, Whole Blood 98 mg/dL (60-115)
[2023-03-12] MEDS: 0.9 % Sodium Chloride Flush 3 ML SYRINGE IVFLUSH (19:27)
[2023-03-12 20:46] LABS: Glucose, Whole Blood 120 mg/dL (60-115)
--- NOTE | 2023-03-13 | EEG_ITS ---
This is a 16 channel EEG with an EKG lead. The patient is reported awake during the tracing. Background EEG rhythm at times is about 10 hertz 5 to 20 microvolt posteriorly and lower amplitude fast anteriorly. Patient transitioned into drowsiness, but also there are periods of generalized sharply contoured theta to delta range discharges noted. Cardiac lead does not reveal any significant abnormality. Photic stimulation is unremarkable. Hyperventilation is not performed. IMPRESSION: Widely abnormal EEG suggestive of a paroxysmal disorder. Seizure disorder is a consideration. MD CHRISTIAN Samuel/CECILIO / [phone]
[2023-03-13] MEDS: Acetaminophen 325 MG TABLET 650 MG PO ×3 (00:14→16:33)
[2023-03-13] MEDS: Melatonin 3 MG TABLET 6 MG PO (00:30)
[2023-03-13 03:21] VITALS: BP 145/88; PULSE 66; RESP 18; TEMP 37.1; O2SAT 99
[2023-03-13 06:53] LABS: MANUAL DIFF FLAG NO
[2023-03-13 07:05] LABS: Basophils Absolute Auto 0.1 X10*3/uL (0.0-0.2); Basophils Percent Auto 0.9 % (0-2); Eosinophils Absolute Auto 0.3 X10*3/uL (0.0-0.4); Eosinophils Percent Auto 5.3 % (0-4); Hematocrit 43.8 % (42.0-52.0); Hemoglobin 15.3 g/dl (14.0-18.0); Imm Gran Abs Auto 0.03 X10*3/uL (0.00-0.03); Imm Gran Pct Auto 0.5 % (0.0-0.4); Lymphocytes Absolute Auto 1.9 X10*3/uL (1.2-4.9); Lymphocytes Percent Auto 29.1 % (20-40); Mean Corpuscular HGB Conc 34.9 g/dl (31.0-36.0); Mean Corpuscular Hemoglobin 31.2 pg (27.0-33.0); Mean Corpuscular Volume 89.4 fL (80.0-98.0); Mean Platelet Volume 9.5 fL (9.4-12.4); Monocytes Absolute Auto 0.6 X10*3/uL (0.1-1.2); Monocytes Percent Auto 9.5 % (2-11); Neutrophils Absolute Auto 3.5 x10*3/uL (2.0-8.3); Neutrophils Percent Auto 54.7 % (45-73); Platelet Count 157 X10*3/uL (160-400); Red Cell Distribution Width 12.4 % (11.0-16.0); White Blood Count 6.4 X10*3/uL (4.8-10.8)
[2023-03-13 07:15] LABS: Anion Gap 14 (12-20); Blood Urea Nitrogen 14 mg/dL (9-16); Calcium 9.4 mg/dL (8.4-10.2); Carbon Dioxide 23 mmol/L (22-29); Chloride 106 mmol/L (96-108); Cholesterol 283 mg/dL; Creatinine Clr Calc Pharmacy 139.4; Estimated Glomerular Filt Rate > 60; Glucose Random 97 mg/dL (60-115); HDL Cholesterol 41 mg/dL; LDL Cholesterol Calculated 192 mg/dl; Potassium 3.9 mmol/L (3.3-5.1); Sodium 139 mmol/L (135-145); Triglycerides 250 mg/dL
[2023-03-13 07:29] VITALS: BP 145/88; PULSE 66; O2SAT 95
[2023-03-13 07:40] LABS: Glucose, Whole Blood 105 mg/dL (60-115)
[2023-03-13 07:51] VITALS: BP 125/79; PULSE 78; RESP 20; TEMP 36.2; O2SAT 96
--- NOTE | 2023-03-13 08:17 | MHC.CM.PN ---
CM met with Patient at bedside. Patient lives in an apartment with his Girlfriend/HCP and her 17 year old Daughter and he is functionally independent and working. Home/self care is the goal and CM has initiated and will follow for dc planning. Patient is working on getting a PCP and he has received [employer] vax x2.
[2023-03-13] MEDS: 0.9 % Sodium Chloride Flush 3 ML SYRINGE IVFLUSH ×2 (08:35→16:33)
[2023-03-13 11:00] LABS: Glucose, Whole Blood 86 mg/dL (60-115)
[2023-03-13 11:15] VITALS: BP 132/75; PULSE 92; RESP 20; TEMP 36.6; O2SAT 99
--- NOTE | 2023-03-13 14:13 | P.CNPS_ITS ---
History of Present Illness Date of Service: 03/13/2023 <Lana Ornelas NP - Last Filed: 03/13/23 16:03> Chief Complaint: Acute encephalopathy/cva <Lana Ornelas NP - Last Filed: 03/13/23 16:03> Reason for Consult: Depression/Dextromethorphan abuse <Lana Ornelas NP - Last Filed: 03/13/23 16:03> Requesting physician: Samson Wall / [place] <Alex Ozuna MD - Last Filed: 03/13/23 16:03> Discussed with referring provider: Yes <Lana Ornelas NP - Last Filed: 03/13/23 16:03> Sources of Information: patient interviewed and chart reviewed <Lana Ornelas NP - Last Filed: 03/13/23 16:03> HPI Narrative: Patient is a 42-year-old male last noted to be normal a little after midnight apparently awoke somewhere between 3 and 330 and what was interpreted as aphasia but there was definitely a degree of confusion and then this might have been a form of encephalopathy but no fever no chills and ultimately had a negative CT scan of his head but had a follow-up MRI which was completely within normal limits but he received tPA shortly thereafter he improved but the vega issue here is that he did not remember at all what happened it sounds like retrograde amnesia. Consult was put in for psychiatry to determine depression due to patient reporting to hospitalist that he has been abusing dextromethophen to treat his depressive symptoms. <Lana Ornelas NP - Last Filed: 03/13/23 16:03> The patient was initially admitted through the emergency room secondary to gross change in mental status question of encephalopathy and reported aphasia. There was a question of an acute CVA he did receive a CT scan and brain MRI the MRI did not note any acute CVA. Patient was treated with tPA. When the patient was able to give a clear history Dr. Wall noted that the patient was able to relate that he had been taking dextramorphan reportedly to treat depressive symptoms. Consult was put in for psychiatry to determine depression due to patient reporting to hospitalist that he has been abusing dextromethophen to treat his depressive symptoms. Patient reports he has been purchasing Dextromethorphan 60mg tablets from the internet since October 2022. He states having depression symptoms on and off his whole life. Patient is a 42-year-old male with a history of recurrent depression treated in the past with multiple antidepressants. Last treated with Wellbutrin but patient discontinued treatment after he lost his health insurance He reports his current symptoms are, low energy, no interest in doing things, decreased sex drive, difficultly focusing. Patient was a witness to his mothers two suicide attempts. Patient stated he was taking Wellbutrin (unknown dose) when I had insurance, started end of 2019, stopped early 2021. Which he believes did improve his mood. Mr. Marquez does state he has tried various behavioral health medications in the past such as; Zoloft, Effexor, Seroquel, Ad derall, and Vistaril. (unknown dosages and reactions). Patient reports a suicide attempt in 2019 by intentional overdose on morphine. <Alex Ozuna MD - Last Filed: 03/13/23 16:03> Past Psychiatric History: No inpatient hospitalizations. Rehab in 2019. 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 Lives with girlfriend and her 17 year old daughter. <Lana Ornelas NP - Last Filed: 03/13/23 16:03> Review of Systems Constitutional: Reports as per HPI <Lana Ornelas NP - Last Filed: 03/13/23 16:03> Eyes: Reports as per HPI <Lana Ornelas NP - Last Filed: 03/13/23 16:03> Reports as per HPI <Lana Ornelas NP - Last Filed: 03/13/23 16:03> Cardiovascular: Reports as per HPI <Lana Ornelas NP - Last Filed: 03/13/23 16:03> Respiratory: Reports as per HPI <Lana Ornelas NP - Last Filed: 03/13/23 16:03> Gastrointestinal: Reports as per HPI <Lana Ornelas NP - Last Filed: 03/13/23 16:03> Genitourinary: Reports as per HPI and Reports change in libido <Lana Ornelas NP - Last Filed: 03/13/23 16:03> Musculoskeletal: Reports as per HPI <Lana Ornelas NP - Last Filed: 03/13/23 16:03> Skin/Breast: Reports as per HPI <Lana Ornelas NP - Last Filed: 03/13/23 16:03> Reports as per HPI <Lana Ornelas NP - Last Filed: 03/13/23 16:03> Psychiatric: Reports change in libido, Reports depression and Reports anhedonia <Lana Ornelas PEPPER CUTTER - Last Filed: 03/13/23 16:03> Endocrine: Reports change in libido <Lana Ornelas NP - Last Filed: 03/13/23 16:03> Hematologic/Lymphatic: Reports as per HPI <Lana Ornelas NP - Last Filed: 03/13/23 16:03> Allergic/Immunologic: Reports as per HPI <Lana Ornelas NP - Last Filed: 03/13/23 16:03> PMF Family History: Pt reports mother, sister and brother all have depression. 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 Lives with girlfriend and her 17 year old daughter. 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 Pt states he continued to drink alcohol (3-4 beers daily) but does not abuse other substances. <Lana Ornelas NP - Last Filed: 03/13/23 16:03> Trauma History: None <Lana Ornelas NP - Last Filed: 03/13/23 16:03> Diagnostics Vital Signs (24Hr): Vital Signs - 24 hr 03/12/23 15:13 03/12/23 15:15 03/12/23 15:30 Temperature Pulse Rate 80 Respiratory Rate 11 L 18 18 Blood Pressure 132/90 H Pulse Oximetry 99 Oxygen Delivery Method Room Air Oxygen Flow Rate 03/12/23 18:13 03/12/23 20:50 03/12/23 22:52 Temperature 98.0 F 98.6 F 98.8 F Pulse Rate 77 79 85 Respiratory Rate 18 18 18 Blood Pressure 146/91 H 133/57 L 121/93 H Pulse Oximetry 96 96 98 Oxygen Delivery Method Nasal Cannula Nasal Cannula Nasal Cannula Oxygen Flow Rate 2 2 2 03/13/23 03:21 03/13/23 07:29 03/13/23 07:51 Temperature 98.7 F 97.1 F Pulse Rate 66 66 78 Respiratory Rate 18 20 Blood Pressure 145/88 H 145/88 H 125/79 Pulse Oximetry 99 95 96 Oxygen Delivery Method Nasal Cannula Room Air Oxygen Flow Rate 2 03/13/23 11:15 Temperature 97.8 F Pulse Rate 92 Respiratory Rate 20 Blood Pressure 132/75 Pulse Oximetry 99 Oxygen Delivery Method Room Air Oxygen Flow Rate BMI result Body Mass Index 32.7 <Lana Ornelas NP - Last Filed: 03/13/23 16:03> Labs Results: 03/13/23 06:22 03/13/23 06:22 <Lana Ornelas NP - Last Filed: 03/13/23 16:03> Labs: Laboratory Results - last 48 hr 03/12/23 03/12/23 03/12/23 04:05 04:06 04:35 WBC 7.6 RBC 4.86 Hgb 15.2 Hct 43.1 MCV 88.7 MCH 31.3 MCHC 35.3 RDW 12.3 Plt Count 147 L MPV 9.5 Immature Gran % (Auto) 0.5 H Neut % (Auto) 75.4 H Lymph % (Auto) 13.9 L Perry % (Auto) 6.5 Eos % (Auto) 2.9 Baso % (Auto) 0.8 Lymph # (Auto) 1.1 L Perry # (Auto) 0.5 Eos # (Auto) 0.2 Baso # (Auto) 0.1 Abs Immat Gran (auto) 0.04 H Absolute Neuts (auto) 5.7 Absolute Nucleated RBC 0.000 Nucleated RBC % (auto) 0.0 ESR PT Whole Blood PT 12.4 INR Whole Blood INR 1.0 APTT Sodium Potassium Chloride Carbon Dioxide Anion Gap BUN Creatinine Estim Creat Clear Calc Estimated GFR POC Glucose 138 H Random Glucose Calcium Total Creatine Kinase Troponin I High Sens Triglycerides Cholesterol LDL Cholesterol, Calc HDL Cholesterol Urine Opiates Screen Urine Fentanyl Screen Ur Barbiturates Screen Ur Phencyclidine Scrn Ur Amphetamines Screen U Benzodiazepines Scrn Urine Cocaine Screen U Marijuana (THC) Screen Ethyl Alcohol Respiratory Panel Mane T.pallidum Ab (EIA) Adenovirus (Rapid PCR) B.pert (TEM-PCR) B.parapertussis DNA PCR C. pneumoniae DNA (PCR) Coronavirus OC43 (PCR) Coronavirus HKU1 (PCR) Coronavirus 229E (PCR) Coronavirus NL63 (PCR) HIV 1&2 Ab/P24 Ag 4thGn Human Metapneumovir PCR Influenza A (RT-PCR) Influenza B (RT-PCR) M. pneumoniae (PCR) Parainfluenza 1 (PCR) Parainfluenza 2 (PCR) Parainfluenza 3 (PCR) Parainfluenza 4 (PCR) RSV (PCR) Entero/Rhino (PCR) SARS-CoV-2 RNA (RT-PCR) 03/12/23 03/12/23 03/12/23 04:35 04:35 04:35 WBC RBC Hgb Hct MCV MCH MCHC RDW Plt Count MPV Immature Gran % (Auto) Neut % (Auto) Lymph % (Auto) Perry % (Auto) Eos % (Auto) Baso % (Auto) Lymph # (Auto) Perry # (Auto) Eos # (Auto) Baso # (Auto) Abs Immat Gran (auto) Absolute Neuts (auto) Absolute Nucleated RBC Nucleated RBC % (auto) ESR PT 11.5 Whole Blood PT INR 1.0 Whole Blood INR APTT 31.6 Sodium 141 Potassium 4.2 Chloride 107 Carbon Dioxide 25 Anion Gap 13 BUN 13 Creatinine 1.12 Estim Creat Clear Calc 111.6 Estimated GFR > 60 POC Glucose Random Glucose 118 H Calcium 9.2 Total Creatine Kinase 75 Troponin I High Sens < 2.7 Triglycerides Cholesterol LDL Cholesterol, Calc HDL Cholesterol Urine Opiates Screen Urine Fentanyl Screen Ur Barbiturates Screen Ur Phencyclidine Scrn Ur Amphetamines Screen U Benzodiazepines Scrn Urine Cocaine Screen U Marijuana (THC) Screen Ethyl Alcohol < 10 Respiratory Panel Mane T.pallidum Ab (EIA) Adenovirus (Rapid PCR) B.pert (TEM-PCR) B.parapertussis DNA PCR C. pneumoniae DNA (PCR) Coronavirus OC43 (PCR) Coronavirus HKU1 (PCR) Coronavirus 229E (PCR) Coronavirus NL63 (PCR) HIV 1&2 Ab/P24 Ag 4thGn Human Metapneumovir PCR Influenza A (RT-PCR) Influenza B (RT-PCR) M. pneumoniae (PCR) Parainfluenza 1 (PCR) Parainfluenza 2 (PCR) Parainfluenza 3 (PCR) Parainfluenza 4 (PCR) RSV (PCR) Entero/Rhino (PCR) SARS-CoV-2 RNA (RT-PCR) 03/12/23 03/12/23 03/12/23 11:14 11:14 11:14 WBC RBC Hgb Hct MCV MCH MCHC RDW Plt Count MPV Immature Gran % (Auto) Neut % (Auto) Lymph % (Auto) Perry % (Auto) Eos % (Auto) Baso % (Auto) Lymph # (Auto) Perry # (Auto) Eos # (Auto) Baso # (Auto) Abs Immat Gran (auto) Absolute Neuts (auto) Absolute Nucleated RBC Nucleated RBC % (auto) ESR 5 PT Whole Blood PT INR Whole Blood INR APTT Sodium Potassium Chloride Carbon Dioxide Anion Gap BUN Creatinine Estim Creat Clear Calc Estimated GFR POC Glucose Random Glucose Calcium Total Creatine Kinase Troponin I High Sens Triglycerides Cholesterol LDL Cholesterol, Calc HDL Cholesterol Urine Opiates Screen Urine Fentanyl Screen Ur Barbiturates Screen Ur Phencyclidine Scrn Ur Amphetamines Screen U Benzodiazepines Scrn Urine Cocaine Screen U Marijuana (THC) Screen Ethyl Alcohol Respiratory Panel Mane T.pallidum Ab (EIA) Nonreactive Adenovirus (Rapid PCR) B.pert (TEM-PCR) B.parapertussis DNA PCR C. pneumoniae DNA (PCR) Coronavirus OC43 (PCR) Coronavirus HKU1 (PCR) Coronavirus 229E (PCR) Coronavirus NL63 (PCR) HIV 1&2 Ab/P24 Ag 4thGn Nonreactive Human Metapneumovir PCR Influenza A (RT-PCR) Influenza B (RT-PCR) M. pneumoniae (PCR) Parainfluenza 1 (PCR) Parainfluenza 2 (PCR) Parainfluenza 3 (PCR) Parainfluenza 4 (PCR) RSV (PCR) Entero/Rhino (PCR) SARS-CoV-2 RNA (RT-PCR) 03/12/23 03/12/23 03/12/23 11:34 11:56 11:56 WBC RBC Hgb Hct MCV MCH MCHC RDW Plt Count MPV Immature Gran % (Auto) Neut % (Auto) Lymph % (Auto) Perry % (Auto) Eos % (Auto) Baso % (Auto) Lymph # (Auto) Perry # (Auto) Eos # (Auto) Baso # (Auto) Abs Immat Gran (auto) Absolute Neuts (auto) Absolute Nucleated RBC Nucleated RBC % (auto) ESR PT Whole Blood PT INR Whole Blood INR APTT Sodium Potassium Chloride Carbon Dioxide Anion Gap BUN Creatinine Estim Creat Clear Calc Estimated GFR POC Glucose 120 H Random Glucose Calcium Total Creatine Kinase Troponin I High Sens Triglycerides Cholesterol LDL Cholesterol, Calc HDL Cholesterol Urine Opiates Screen POSITIVE H Urine Fentanyl Screen Not Detected Ur Barbiturates Screen Not Detected Ur Phencyclidine Scrn POSITIVE H Ur Amphetamines Screen Not Detected U Benzodiazepines Scrn Not Detected Urine Cocaine Screen Not Detected U Marijuana (THC) Screen Not Detected Ethyl Alcohol Respiratory Panel Mane See Note T.pallidum Ab (EIA) Adenovirus (Rapid PCR) Not Detected B.pert (TEM-PCR) Not Detected B.parapertussis DNA PCR Not Detected C. pneumoniae DNA (PCR) Not Detected Coronavirus OC43 (PCR) Not Detected Coronavirus HKU1 (PCR) Not Detected Coronavirus 229E (PCR) Not Detected Coronavirus NL63 (PCR) Not Detected HIV 1&2 Ab/P24 Ag 4thGn Human Metapneumovir PCR Not Detected Influenza A (RT-PCR) Not Detected Influenza B (RT-PCR) Not Detected M. pneumoniae (PCR) Not Detected Parainfluenza 1 (PCR) Not Detected Parainfluenza 2 (PCR) Not Detected Parainfluenza 3 (PCR) Not Detected Parainfluenza 4 (PCR) Not Detected RSV (PCR) Not Detected Entero/Rhino (PCR) Not Detected SARS-CoV-2 RNA (RT-PCR) Not Detected 03/12/23 03/12/23 03/13/23 17:26 20:30 06:22 WBC 6.4 RBC 4.90 Hgb 15.3 Hct 43.8 MCV 89.4 MCH 31.2 MCHC 34.9 RDW 12.4 Plt Count 157 L MPV 9.5 Immature Gran % (Auto) 0.5 H Neut % (Auto) 54.7 Lymph % (Auto) 29.1 Perry % (Auto) 9.5 Eos % (Auto) 5.3 H Baso % (Auto) 0.9 Lymph # (Auto) 1.9 Perry # (Auto) 0.6 Eos # (Auto) 0.3 Baso # (Auto) 0.1 Abs Immat Gran (auto) 0.03 Absolute Neuts (auto) 3.5 Absolute Nucleated RBC 0.000 Nucleated RBC % (auto) 0.0 ESR PT Whole Blood PT INR Whole Blood INR APTT Sodium Potassium Chloride Carbon Dioxide Anion Gap BUN Creatinine Estim Creat Clear Calc Estimated GFR POC Glucose 98 120 H Random Glucose Calcium Total Creatine Kinase Troponin I High Sens Triglycerides Cholesterol LDL Cholesterol, Calc HDL Cholesterol Urine Opiates Screen Urine Fentanyl Screen Ur Barbiturates Screen Ur Phencyclidine Scrn Ur Amphetamines Screen U Benzodiazepines Scrn Urine Cocaine Screen U Marijuana (THC) Screen Ethyl Alcohol Respiratory Panel Mane T.pallidum Ab (EIA) Adenovirus (Rapid PCR) B.pert (TEM-PCR) B.parapertussis DNA PCR C. pneumoniae DNA (PCR) Coronavirus OC43 (PCR) Coronavirus HKU1 (PCR) Coronavirus 229E (PCR) Coronavirus NL63 (PCR) HIV 1&2 Ab/P24 Ag 4thGn Human Metapneumovir PCR Influenza A (RT-PCR) Influenza B (RT-PCR) M. pneumoniae (PCR) Parainfluenza 1 (PCR) Parainfluenza 2 (PCR) Parainfluenza 3 (PCR) Parainfluenza 4 (PCR) RSV (PCR) Entero/Rhino (PCR) SARS-CoV-2 RNA (RT-PCR) 03/13/23 03/13/23 03/13/23 06:22 07:37 10:53 WBC RBC Hgb Hct MCV MCH MCHC RDW Plt Count MPV Immature Gran % (Auto) Neut % (Auto) Lymph % (Auto) Perry % (Auto) Eos % (Auto) Baso % (Auto) Lymph # (Auto) Perry # (Auto) Eos # (Auto) Baso # (Auto) Abs Immat Gran (auto) Absolute Neuts (auto) Absolute Nucleated RBC Nucleated RBC % (auto) ESR PT Whole Blood PT INR Whole Blood INR APTT Sodium 139 Potassium 3.9 Chloride 106 Carbon Dioxide 23 Anion Gap 14 BUN 14 Creatinine 0.89 Estim Creat Clear Calc 139.4 Estimated GFR > 60 POC Glucose 105 86 Random Glucose 97 Calcium 9.4 Total Creatine Kinase Troponin I High Sens Triglycerides 250 Cholesterol 283 LDL Cholesterol, Calc 192 HDL Cholesterol 41 Urine Opiates Screen Urine Fentanyl Screen Ur Barbiturates Screen Ur Phencyclidine Scrn Ur Amphetamines Screen U Benzodiazepines Scrn Urine Cocaine Screen U Marijuana (THC) Screen Ethyl Alcohol Respiratory Panel Mane T.pallidum Ab (EIA) Adenovirus (Rapid PCR) B.pert (TEM-PCR) B.parapertussis DNA PCR C. pneumoniae DNA (PCR) Coronavirus OC43 (PCR) Coronavirus HKU1 (PCR) Coronavirus 229E (PCR) Coronavirus NL63 (PCR) HIV 1&2 Ab/P24 Ag 4thGn Human Metapneumovir PCR Influenza A (RT-PCR) Influenza B (RT-PCR) M. pneumoniae (PCR) Parainfluenza 1 (PCR) Parainfluenza 2 (PCR) Parainfluenza 3 (PCR) Parainfluenza 4 (PCR) RSV (PCR) Entero/Rhino (PCR) SARS-CoV-2 RNA (RT-PCR) <Lana Ornelas PEPPER CUTTER - Last Filed: 03/13/23 16:03> Imaging Radiology Impressions: ITS Impressions Head CT 03/12/23 04:14 IMPRESSION: No acute intracranial findings. This critical result was discussed with Dr. Shaver on 03/12/2023 4:25 AM, and it was ascertained that the content and urgency of the report was understood at the time of direct communication. Head/Neck CTA 03/12/23 04:24 IMPRESSION: 1. No large vessel occlusion or significant stenosis in the intracranial circulation. 2. Relative hypoattenuation within some regions of the left cerebral hemisphere on the delayed series may be artifactual in nature. However, in the setting of aphasia, MRI is advised for further evaluation. This critical result was discussed with Dr. Shaver on 03/12/2023 4:25 AM, and it was ascertained that the content and urgency of the report was understood at the time of direct communication. Brain MRI 03/12/23 09:04 IMPRESSION: No acute intracranial findings. No acute infarcts. Previously questioned CT findings within the left temporal lobe artifactually related to streak artifact. There is no parenchymal signal abnormality within the temporal lobes on MRI. Empty sella. Head CT 03/12/23 09:51 IMPRESSION: No acute intracranial pathology. Head CT 03/12/23 14:14 IMPRESSION: No acute intracranial pathology. <Lana Ornelas NP - Last Filed: 03/13/23 16:03> Mental Status Exam Mental Status Exam Patient Appearance: Appropriate <Lana Ornelas NP - Last Filed: 03/13/23 16:03> Patient Orientation: Person, Place, Time and Situation <Lana Ornelas NP - Last Filed: 03/13/23 16:03> Level of Consciousness: Awake and Alert <Lana Ornelas NP - Last Filed: 03/13/23 16:03> Patient Behavior: Appropriate, Cooperative and Good Eye Contact <Lana Ornelas NP - Last Filed: 03/13/23 16:03> Mood Description: Calm <Lana Ornelas NP - Last Filed: 03/13/23 16:03> Affect Description: Calm <Lana Ornelas NP - Last Filed: 03/13/23 16:03> Patient Cognition Impaired: No <Lana Ornelas NP - Last Filed: 03/13/23 16:03> Ability to Follow Directions: Good <Lana Ornelas NP - Last Filed: 03/13/23 16:03> Speech Pattern: Clear and Appropriate <Lana Ornelas NP - Last Filed: 03/13/23 16:03> Memory Description: Intact <Lana Ornelas NP - Last Filed: 03/13/23 16:03> Hallucinations: None <Lana Ornelas NP - Last Filed: 03/13/23 16:03> Delusions: Not Present <Lana Ornelas NP - Last Filed: 03/13/23 16:03> Thought Process: Intact <Lana Ornelas NP - Last Filed: 03/13/23 16:03> Thought Content: positive for Intact <Lana Ornelas NP - Last Filed: 03/13/23 16:03> Depressive Symptoms: Reduced Sex Drive and Loss of Int. in Activity <Lana Ornelas NP - Last Filed: 03/13/23 16:03> Judgement: Fair <Lana Ornelas NP - Last Filed: 03/13/23 16:03> Medications Medications Current Medications Acetaminophen (Acetaminophen 325 Mg Tablet) 650 mg PO Q8H PRN PRN Reason: Pain, Moderate(Pain Scale 4-6) Last Admin: 03/13/23 08:35 Dose: 650 mg Lorazepam (Lorazepam 2 Mg/Ml Vial) 2 mg IVPUSH ONCE PRN PRN Reason: Seizures Melatonin (Melatonin 3 Mg Tablet) 6 mg PO BEDTIME [facility] Last Admin: 03/13/23 00:30 Dose: 6 mg Sodium Chloride (0.9 % Sodium Chloride Flush 3 Ml Syringe) 3 ml IVFLUSH QSHIFT [facility] Last Admin: 03/13/23 08:35 Dose: 3 ml <Lana Ornelas NP - Last Filed: 03/13/23 16:03> Allergies Allergies Allergy/AdvReac Type Severity Reaction Status Date / Time No Known Allergies Allergy Verified 03/12/23 04:04 <Lana Ornelas NP - Last Filed: 03/13/23 16:03> Assessment & Plan Assessment & Plan (1) MDD (major depressive disorder), recurrent episode: Status: Acute <Lana Ornelas NP - Last Filed: 03/13/23 16:03> Code(s): F33.9 - Major depressive disorder, recurrent, unspecified <Lana Ornelas PEPPER CUTTER - Last Filed: 03/13/23 16:03> (2) Dextromethorphan adverse reaction: Status: Acute <Lana Ornelas NP - Last Filed: 03/13/23 16:03> Code(s): T48.3X5A - Adverse effect of antitussives, initial encounter <Lana Ornelas NP - Last Filed: 03/13/23 16:03> (3) Dextromethorphan use disorder, moderate: Status: Acute <Lana Ornelas NP - Last Filed: 03/13/23 16:03> Code(s): F19.20 - Other psychoactive substance dependence, uncomplicated <Lana Ornelas NP - Last Filed: 03/13/23 16:03> Assessment and Plan: Patient reports he has been purchasing Dextromethorphan 60mg tablets from the internet since October 2022. He states having depression symptoms on and off his whole life. He reports his current symptoms are, low energy, no i nterest in doing things, decreased sex drive, difficultly focusing. Patient was a witness to his mothers two suicide attempts. Patient stated he was taking Wellbutrin (unknown dose) when I had insurance, started end of 2019, stopped early 2021. Which he believes did improve his mood. Mr. Marquez does state he has tried various behavioral health medications in the past such as; Zoloft, Effexor, Seroquel, Adderall, and Vistaril. (unknown dosages and reactions). Patient reports a suicide attempt in 2019 by intentional overdose on morphine. Patient would like a referral to outpatient services for therapy/addiction services and a prescriber for psychiatric medications. <Lana Ornelas NP - Last Filed: 03/13/23 16:03> The patient has a history of recurrent depression status post what appears to be dextramorphan poisoning with confusion delirium now resolving. The patient should be educated regarding potential toxic affects of chronic use and misuse including cognitive issues and psychosis. Patient would benefit from o ngoing psychiatric treatment would strongly encourage psych sobriety from all substances including alcohol. Would avoid serotonergic agents at this time and patient would most likely benefit from restarting Wellbutrin as an outpatient and ongoing treatment Patient would like a referral to outpatient services for therapy/addiction services and a prescriber for psychiatric medications. There is a past history of other use of addictive substances Patient might benefit from partial hospital referral however refusing that level of care at this time no evidence of acute psychosis, no symptoms suggesting danger to self or others does not need inpatient psychiatric care. Patient strongly urged to not continue his use of Dextromorphan to self treat depression <Alex Ozuna MD - Last Filed: 03/13/23 16:03> Total time managing care of this patient today ____ minutes. <Lana Ornelas NP - Last Filed: 03/13/23 16:03> Total time managing care of this patient today __60__ minutes. <Alex Ozuna MD - Last Filed: 03/13/23 16:03> Patient educated on: therapeutic strategies <Lana Ornelas NP - Last Filed: 03/13/23 16:03> Informed Consent: understands <Lana Ornelas NP - Last Filed: 03/13/23 16:03>
--- NOTE | 2023-03-13 15:36 | PM.DS ---
DS: Providers Provider Date of Service: 03/13/23 Date of admission: 03/12/23 10:50 Date of discharge: 03/13/23 Primary care physician: Unknown Physician Consults: 03/12/23 06:58 Consult to Neurology Stat Consulting Provider: [facility] Reason for consultation: cva Has provider been notified: Yes 03/12/23 10:50 Consult to Neurology Routine Consulting Provider: Susanne Shelby Reason for consultation: tpa/cva Has provider been notified: Yes 03/13/23 11:00 Consult to Psychiatry Routine Consulting Provider: Psych Covering Reason for consultation: Depression. 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 on admission by Dr Omaira Castillo 03/12/23: 42-year-old male last noted to be normal a little after midnight apparently awoke somewhere between 3 and 330 and what was interpreted as aphasia but there was definitely a degree of confusion and the this might have been a form of encephalopathy but no fever no chills and ultimately had a negative CT scan of his head but had a follow-up MRI which was completely within normal limits but he received tPA shortly thereafter he improved but the vega issue here is that he did not remember at all what happened it sounds like retrograde amnesia which makes me suspect that this could be a postictal problem from neurology consultation by Dr Jim Shelby 03/13/23: 42 years old man who came last night to hospital emergency room with sudden onset of difficulty speaking.? He was having headache for couple of days.? He denied taking any illicit drugs or drinking alcohol or recent trauma.? In emergency room he was noted to be in aphasic and not in confused state and with diagnosis of possible ischemic infarction treated with intravenous tPA.? After treatment his situation improved but then he also started saying that he did not remember what had happened. The patient was stepped down to the [facility]. MRI was negative for acute findings. His mental status returned to normal. Neurology was consulted. It was thought that he had suffered a seizure. Indeed, EEG was abnormal. Levetiracetam was started. He also admitted to using OTC dextromethorphan to treat depression, which would explain +PCP on his urine drug screen. Psychiatry was consulted and referred him for outpatient therapy. He was discharged home on levetiracetam, instructed to avoid driving, and will follow up with Neurology. Time Spent with Patient Time attestation: Total time managing care of this patient today _35___ minutes. Discharge coordination time: Greater than 30 minutes Quality: Safe Use of Opioids Does Pt have an Active Cancer Diagnosis on the Problem List?: No Quality: Stroke Does the patient have a stroke diagnosis?: No Physical Exam Vital Signs: Vital Signs: Last Vital Signs Temp 97.8 F 03/13/23 11:15 Pulse 92 03/13/23 11:15 Resp 20 03/13/23 11:15 BP 132/75 03/13/23 11:15 Pulse Ox 99 03/13/23 11:15 O2 Del Method Room Air 03/13/23 11:15 O2 Flow Rate 2 03/13/23 03:21 BMI result Body Mass Index 32.7 Gen: in no acute distress HEENT: sclera anicteric, moist mucus membranes Neck: supple Lungs: clear to auscultation bilaterally Heart: regular rate and rhythm, no murmurs Abd: soft, non-tender, non-distended Ext: no edema Skin: warm/well-perfused Neuro: alert and oriented x3, no focal findings Psych: appropriate affect DS: Data Data Completed and Pending Completed studies during hospitalization [Text1]: Laboratory Results WBC 6.4 X10*3/uL (4.8-10.8) 03/13/23 06:22 RBC 4.90 X10*6/uL (4.60-5.80) 03/13/23 06:22 Hgb 15.3 g/dl (14.0-18.0) 03/13/23 06:22 Hct 43.8 % (42.0-52.0) 03/13/23 06:22 MCV 89.4 fL (80.0-98.0) 03/13/23 06:22 MCH 31.2 pg (27.0-33.0) 03/13/23 06:22 MCHC 34.9 g/dl (31.0-36.0) 03/13/23 06:22 RDW 12.4 % (11.0-16.0) 03/13/23 06:22 Plt Count 157 X10*3/uL (160-400) L 03/13/23 06:22 MPV 9.5 fL (9.4-12.4) 03/13/23 06:22 Immature Gran % (Auto) 0.5 % (0.0-0.4) H 03/13/23 06:22 Neut % (Auto) 54.7 % (45-73) 03/13/23 06:22 Lymph % (Auto) 29.1 % (20-40) 03/13/23 06:22 [place] % (Auto) 9.5 % (2-11) 03/13/23 06:22 Eos % (Auto) 5.3 % (0-4) H 03/13/23 06:22 Baso % (Auto) 0.9 % (0-2) 03/13/23 06:22 Lymph # (Auto) 1.9 X10*3/uL (1.2-4.9) 03/13/23 06:22 [place] # (Auto) 0.6 X10*3/uL (0.1-1.2) 03/13/23 06:22 Eos # (Auto) 0.3 X10*3/uL (0.0-0.4) 03/13/23 06:22 Baso # (Auto) 0.1 X10*3/uL (0.0-0.2) 03/13/23 06:22 Abs Immat Gran (auto) 0.03 X10*3/uL (0.00-0.03) 03/13/23 06:22 Absolute Neuts (auto) 3.5 x10*3/uL (2.0-8.3) 03/13/23 06:22 Absolute Nucleated RBC 0.000 X10*3/uL (0.0-0.012) 03/13/23 06:22 Nucleated RBC % (auto) 0.0 /100WBC (0.0-0.2) 03/13/23 06:22 ESR 5 MM/HR (0-15) 03/12/23 11:14 PT 11.5 SEC (10.0-13.1) 03/12/23 04:35 Whole Blood PT 12.4 sec (11.1-13.5) 03/12/23 04:06 INR 1.0 (0.9-1.1) 03/12/23 04:35 Whole Blood INR 1.0 (0.9-1.1) 03/12/23 04:06 APTT 31.6 SEC (26.0-36.4) 03/12/23 04:35 Sodium 139 mmol/L (135-145) 03/13/23 06:22 Potassium 3.9 mmol/L (3.3-5.1) 03/13/23 06:22 Chloride 106 mmol/L (96-108) 03/13/23 06:22 Carbon Dioxide 23 mmol/L (22-29) 03/13/23 06:22 Anion Gap 14 (12-20) 03/13/23 06:22 BUN 14 mg/dL (9-16) 03/13/23 06:22 Creatinine 0.89 mg/dL (0.5-1.4) 03/13/23 06:22 Estim Creat Clear Calc 139.4 03/13/23 06:22 Estimated GFR > 60 03/13/23 06:22 POC Glucose 86 mg/dL (60-115) 03/13/23 10:53 Random Glucose 97 mg/dL (60-115) 03/13/23 06:22 Calcium 9.4 mg/dL (8.4-10.2) 03/13/23 06:22 Total Creatine Kinase 75 U/L (38-174) 03/12/23 04:35 Troponin I High Sens < 2.7 ng/L (<3.5-35.0) 03/12/23 04:35 Triglycerides 250 mg/dL 03/13/23 06:22 Cholesterol 283 mg/dL 03/13/23 06:22 LDL Cholesterol, Calc 192 mg/dl 03/13/23 06:22 HDL Cholesterol 41 mg/dL 03/13/23 06:22 Urine Opiates Screen POSITIVE (Not Detect) H 03/12/23 11:56 Urine Fentanyl Screen Not Detected (Not Detect) 03/12/23 11:56 Ur Barbiturates Screen Not Detected (Not Detect) 03/12/23 11:56 Ur Phencyclidine Scrn POSITIVE (Not Detect) H 03/12/23 11:56 Ur Amphetamines Screen Not Detected (Not Detect) 03/12/23 11:56 U Benzodiazepines Scrn Not Detected (Not Detect) 03/12/23 11:56 Urine Cocaine Screen Not Detected (Not Detect) 03/12/23 11:56 U Marijuana (THC) Screen Not Detected (Not Detect) 03/12/23 11:56 Ethyl Alcohol < 10 mg/dL 03/12/23 04:35 Respiratory Panel Mane See Note 03/12/23 11:56 T.pallidum Ab (EIA) Nonreactive (Nonreactive) 03/12/23 11:14 Adenovirus (Rapid PCR) Not Detected (Not Detect.) 03/12/23 11:56 B.pert (TEM-PCR) Not Detected (Not Detect.) 03/12/23 11:56 B.parapertussis DNA PCR Not Detected (Not Detect.) 03/12/23 11:56 C. pneumoniae DNA (PCR) Not Detected (Not Detect.) 03/12/23 11:56 Coronavirus OC43 (PCR) Not Detected (Not Detect.) 03/12/23 11:56 Coronavirus HKU1 (PCR) Not Detected (Not Detect.) 03/12/23 11:56 Coronavirus 229E (PCR) Not Detected (Not Detect.) 03/12/23 11:56 Coronavirus NL63 (PCR) Not Detected (Not Detect.) 03/12/23 11:56 HIV 1&2 Ab/P24 Ag 4thGn Nonreactive (Nonreactive) 03/12/23 11:14 Human Metapneumovir PCR Not Detected (Not Detect.) 03/12/23 11:56 Influenza A (RT-PCR) Not Detected (Not Detect.) 03/12/23 11:56 Influenza B (RT-PCR) Not Detected (Not Detect.) 03/12/23 11:56 M. pneumoniae (PCR) Not Detected (Not Detect.) 03/12/23 11:56 Parainfluenza 1 (PCR) Not Detected (Not Detect.) 03/12/23 11:56 Parainfluenza 2 (PCR) Not Detected (Not Detect.) 03/12/23 11:56 Parainfluenza 3 (PCR) Not Detected (Not Detect.) 03/12/23 11:56 Parainfluenza 4 (PCR) Not Detected (Not Detect.) 03/12/23 11:56 RSV (PCR) Not Detected (Not Detect.) 03/12/23 11:56 Entero/Rhino (PCR) Not Detected (Not Detect.) 03/12/23 11:56 SARS-CoV-2 RNA (RT-PCR) Not Detected (Not Detect.) 03/12/23 11:56 Impressions Head/Neck CTA 03/12/23 04:24 IMPRESSION: 1. No large vessel occlusion or significant stenosis in the intracranial circulation. 2. Relative hypoattenuation within some regions of the left cerebral hemisphere on the delayed series may be artifactual in nature. However, in the setting of aphasia, MRI is advised for further evaluation. This critical result was discussed with Dr. Shaver on 03/12/2023 4:25 AM, and it was ascertained that the content and urgency of the report was understood at the time of direct communication. Brain MRI 03/12/23 09:04 IMPRESSION: No acute intracranial findings. No acute infarcts. Previously questioned CT findings within the left temporal lobe artifactually related to streak artifact. There is no parenchymal signal abnormality within the temporal lobes on MRI. Empty sella. Head CT 03/12/23 14:14 IMPRESSION: No acute intracranial pathology. Discharge Plan Discharge Anticipated Discharge Date/Time: 03/13/23 15:34 Patient Disposition: Home, Self-Care Discharge Diagnosis: seizure Referrals: Susanne Shelby MD [Physician] - 2 Weeks Physician,Unknown J [Primary Care Provider] - 1 Week Alex Ozuna MD [Physician] - 1 Week Discharge Medications: New levetiracetam 500 mg Tablet 500 mg PO BID Qty: 60 0RF Continued cetirizine [Zyrtec] 10 mg Tablet 10 mg PO DAILY PRN (Reason: Allergy Symptoms) melatonin 5 mg Tablet 5 mg PO BEDTIME Discharge Orders: Discharge Order (Routine); Ordered 03/13/23 Ordered By: Samson Wall Diet: Advance to usual diet Activity on Discharge: no driving Stand Alone Forms: Patient Portal Discharge page Care Plan Goals: seizure management Health Concerns: seizure Plan of Treatment: take levetiracetam [Keppra] 500 mg twice daily follow up with Neurology [Dr Shelby] in 2 weeks no driving until cleared by Neurology avoid using dextromethorphan counseling/psychiatry referrals Please follow up with your primary care doctor within 1 week. Return to the hospital if you experience recurrent or worsening symptoms. Assessment: See Discharge Summary.
[2023-03-13 15:42] VITALS: BP 123/79; PULSE 89; RESP 18; TEMP 36.6; O2SAT 98
--- NOTE | 2023-03-13 15:47 | MHC.CM.PN ---
Patient has been medically cleared for dc to home today, self care.
[2023-03-13 15:49] LABS: Glucose, Whole Blood 123 mg/dL (60-115)
--- NOTE | 2023-03-13 16:16 | MHC.CM.PN ---
Patient has indicated that his Girlfriend will be driving him home.
[2023-03-13] MEDS: levETIRAcetam 500 MG TABLET PO (16:33)
--- NOTE | 2023-03-14 09:25 | MHC.CM.PN ---
Per MD's request, KAI called Patient and left a detailed message at Patient's listed home phone #, providing him with [facility]'s contact information: [address] in [place]/[phone].
[2023-03-15 05:19] LABS: Lyme Abs Screen <0.90 index
== END 2023-03-13 18:09 | disposition home or self-care (01) | DRG 101 ==
LOC: HO.ED 10:34 → HO.EDOVER 11:00 → HO.ICU 11:10 → HO.EDOVER 13:00 → HO.IMC 17:21
PROVIDERS: Student in an Organized Health Care Education/Training Program; Admitting Provider Internal Medicine Cardiovascular Disease; Emergency Provider Internal Medicine; Visit Provider Family Medicine
DX: G40.909 Epilepsy, unspecified, not intractable, without status epilepticus (principal); F19.20 Other psychoactive substance dependence, uncomplicated; F33.9 Major depressive disorder, recurrent, unspecified; R47.01 Aphasia; Z20.822 Contact with and (suspected) exposure to COVID-19; Z87.891 Personal history of nicotine dependence; Z79.899 Other long term (current) drug therapy
CPT/HCPCS: 36415; 70450; 70496; 70498; 70551; 80048; 80061; 80307; 82550; 82947; 84484; 85025; 85610; 85652; 85730; 86617; 86618; 86780; 87389; 87633; 93005; 93306; 95816; 97162; 97166; 99285; J2997; Q9967

== ENCOUNTER 2023-05-07 04:40 | Emergency (ER) | payer OTHER, SELFPAY ==
[2023-05-07] MEDS: LORazepam 2 MG/ML VIAL IM (04:59)
[2023-05-07] MEDS: diphenhydrAMINE HCL 50 MG/ML VIAL IM (05:00)
[2023-05-07] MEDS: Haloperidol Lactate 5 MG/ML VIAL IM (05:00)
[2023-05-07 05:25] VITALS: BP 163/108; PULSE 129; RESP 18; TEMP 37; O2SAT 94; BMI 42.6
[2023-05-07 05:32] VITALS: BP 117/81; PULSE 127; RESP 18; TEMP 37; O2SAT 127
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
--- NOTE | 2023-05-07 06:10 | PC.NURSE ---
patient in the process of being discharged
--- NOTE | 2023-05-07 07:52 | ECG_ITS ---
Test Reason : OD Blood Pressure : / mmHG Vent. Rate : 128 BPM Atrial Rate : 128 BPM P-R Int : 146 ms QRS Dur : 078 ms QT Int : 296 ms P-R-T Axes : 056 031 056 degrees QTc Int : 432 ms Sinus tachycardia Otherwise normal ECG When compared with ECG of 12-MAR-2023 04:29, No significant change was found Referred By: Oren Andre Electronically Signed By:Abram Daniels
== END 2023-05-07 06:36 ==
PROVIDERS: Emergency Provider Internal Medicine
DX: F16.20 Hallucinogen dependence, uncomplicated (principal); R41.82 Altered mental status, unspecified; R00.0 Tachycardia, unspecified; F17.210 Nicotine dependence, cigarettes, uncomplicated; Z71.6 Tobacco abuse counseling; Z79.899 Other long term (current) drug therapy
CPT/HCPCS: 93005; 96372; 99285; J1200; J2060

== ENCOUNTER 2023-10-09 16:03 | Outpatient (AMB) | payer OTHER, SELFPAY ==
[2023-10-09 16:24] VITALS: BP 120/80; PULSE 97; TEMP 36.5; O2SAT 97; BMI 34.5
--- NOTE | 2023-10-09 16:24 | MHC.OFFWIV ---
Intake Vital Signs 10/09/23 16:24 Height 5 ft 8 in Weight 227 lb BMI 34.5 BP 120/80 Blood Pressure Location Rt brachial Position Sitting Pulse 97 Pulse Source Pulse Oximeter Temp 97.7 F Temp Source Temporal Artery Scan Pulse Oximetry (%) 97 Oxygen Delivery Method Room Air Intake Visit Reasons: EP ear blocked sinus pressure Intake Note: pt is here today for ear blocked sinus pressure started Patient Tobacco Use Status: Former Tobacco user Allergies No Known Allergies Allergy (Verified 10/09/23 16:24) Do you need a note to return to daycare/school/sports/work: Yes HPI HPI Comments History of Present Illness Details The patient presents to urgent care for evaluation of left ear pain. He states that for 3 days he has had URI symptoms with nasal congestion cough runny nose and ear pressure. Yesterday the pressure in his ear became more intense and today there is pain. [facility] Social History Household Members: Significant Other Housing: Apartment Do you presently have visiting nurse or other home services: No Alcohol intake: unknown Patient Tobacco Use Status: Former Tobacco user Tobacco use type: Cigarette Substance Use Type: Unknown service: No Current occupational status: employed Review of Systems Const Denies increased appetite Card Denies radiating jaw, neck or arm pain and Denies dyspnea Resp Denies hemoptysis and Denies dyspnea Physical Exam Vital Signs: Last Vital Signs Temp 97.7 F 10/09/23 16:24 Pulse 97 10/09/23 16:24 BP 120/80 10/09/23 16:24 Pulse Ox 97 10/09/23 16:24 Oxygen Delivery Method Room Air 10/09/23 16:24 BMI result Body Mass Index 34.5 Const General: healthy appearing and no acute distress HEENT Other: Left TM bulging and erythematous Head: Yes normal to inspection Ears: external ears normal Chest Chest palpation & inspection: normal inspection of the chest Resp Effort & Inspection: normal respiratory effort and able to speak in complete sentences Assessment & Plan Assessment & Plan (1) Otitis media, left: Code(s): H66.92 - Otitis media, unspecified, left ear Plan Left acute otitis media. Likely secondary to ongoing URI. Recommend Sudafed for pain and congestion. Will prescribe amoxicillin. Medications: New amoxicillin 875 mg PO BID 14 tabs 0RF 7 days Coding Level of Care Code Est Pt Level 3 (20522) Diagnoses Otitis media, left H66.92
== END 2023-10-09 16:48 | disposition home or self-care (01) ==
PROVIDERS: Visit Provider Emergency Medicine
DX: H66.92 Otitis media, unspecified, left ear (principal)
CPT/HCPCS: 99213

== ENCOUNTER 2025-06-27 09:40 | Outpatient (AMB) | payer MEDICAID, SELFPAY ==
--- NOTE | 2025-06-27 10:02 | A.OFFVIS_ITS ---
Intake Visit Reasons: 6 month sz Allergies No Known Allergies Allergy (Verified 06/27/25 10:05) Medication List - Last Reconciled 06/27/25 by Claire Prater CNP amoxicillin 875 mg PO BID 7 days cetirizine (Zyrtec) 10 mg PO DAILY PRN dexmethylphenidate ER 40 mg PO QAM lamotrigine 75 mg PO BID melatonin 5 mg PO BEDTIME sumatriptan succinate take 1 tab at onset of headache; if no relief may repeat 1 tab after at least 2 hrs; max = 4 tabs/24 hr PO HPI Comments Details: 44-year-old man with h/o poly drug abuse, at least two hospitalization in [place] and [place] related to drug overdose, in recent years only drinking alcohol, which he has stopped using completely since 01/2025, and depression, who was [place] [facility] [place] with difficulty speaking and was treated with ivtPA, but his imaging did not reveal any stroke. He had some behavioral symptoms in the past that could have been seizures or reaction to the drugs but he was never diagnosed with seizure disorder. An EEG [place] [facility] revealed minor abnormalities suggestive of seizure disorder and he was started on antiepileptic. He was doing okay. No seizures. No medication side effects with lamotrigine. Headaches have been okay. He had few episodes of disrupted sleep from RLS symptoms in legs and arms. He felt like he had to move his arms and legs around, and sometimes he had to get up and walk around. It was worse after he stopped drinking. He had been drinking from 07/2024-01/2025. It subsided for period of time, but started up again earlier this month. He was using CPAP. He was also having some more numbness and tingling to bottom of feet over the last 2 months, L > R. No significant pain. No falls. [facility] Medical History (Updated 06/27/25 @ 10:12 by Claire Prater CNP) Migraine RLS (restless legs syndrome) Insomnia Depression Alcohol abuse Seizure disorder Encephalopathy Social History Household Members: Significant Other Housing: Apartment Do you presently have visiting nurse or other home services: No Alcohol intake: unknown Patient Tobacco Use Status: Former Tobacco user Tobacco use type: Cigarette Substance Use Type: Unknown service: No Current occupational status: employed Review of Systems Const Denies chills, Denies daytime sleepiness, Denies difficulty sleeping, Denies fatigue, Denies fever(s), Denies frequent falls, Reports headache(s), Denies increased appetite, Denies poor appetite, Denies snoring, Denies weakness, Denies weight gain and Denies weight loss Eyes Denies loss of vision ENT Denies vertigo, Denies dizziness and Reports headache(s) Card Denies chest pain at rest, Denies chest pain with activity, Denies syncope, De nies leg edema and Denies palpitations Resp Denies snoring GI Denies constipation, Denies heartburn, Denies diarrhea and Denies nausea Denies urinary frequency, Denies urinary incontinence and Denies urinary urgency Musc Denies abnormal gait, Denies numbness and Denies tingling Skin/Breast Denies dry skin and Denies rash Neuro Denies abnormal gait, Denies vertigo, Denies dizziness, Denies syncope, Denies frequent falls, Reports headache(s), Denies lack of coordination, Denies loss of vision, Denies memory loss, Denies numbness, Denies restless legs, Denies seizure-like activity, Denies tingling, Denies paresthesias, Denies tremor(s) and Denies weakness Psych Denies anxiety, Denies depression, Denies auditory hallucinations, Denies memory loss, Denies visual hallucinations and Denies suicidal ideation Endo Denies fatigue and Denies palpitations Physical Exam Const Other: General Appearance:? normal, in no acute distress. Skin:? no rashes, no significant birthmarks. Heart:? S1, S2 normal, no murmurs. Lungs:? clear anteriorly and posteriorly. Extremities:? no edema. Psych:? alert, oriented, cognitive function intact, cooperative with exam. Neuro Other: Mental Status:?Normal attention, orientation, memory and affect.? Cranial Nerves:?Pupils are equal, round and reactive to light. External occular muscles are intact. Visual viramontes are full. Face is symmetrical. Facial sensations are normal. Tongue is midline. Palate elevates symmetrically. Shoulder shrugging is normal. Hearing to bedside conversation is normal. Sensory Exam:?Vibration and joint position intact. Coordination:?No ataxia,?no titubation.? Gait Exam: Within normal limits. Extrapyramidal System:?No tremor, rigidity with normal facial expressions.? Pronator Drift:?Not present.? Involuntary Movements:?No tremors seen.? Speech:?Normal.? Results Reviewed Results Reviewed: Routine EEG [place] [facility] [place] March 2023: gen sharp theta CT brain WO at [facility] [place]23[place] [facility] in March 2023: WNL CTA brain and neck [place] [facility] [place]23: [place] Assessment & Plan Assessment & Plan (1) Seizure disorder: Code(s): G40.909 - Epilepsy, unspecified, not intractable, without status epilepticus Category: Medical Plan: Continue lamotrigine 25mg 3 tablets twice a day. (2) Migraine: Code(s): G43.909 - Migraine, unspecified, not intractable, without status migrainosus Category: Medical Qualifiers: Migraine type: unspecified Status migrainosus presence: without status migrainosus Intractability: not intractable Qualified Code(s): G43.909 - Migraine, unspecified, not intractable, without status migrainosus Plan: Continue sumatriptan 50mg 1 tablet as needed for migraine. (3) RLS (restless legs syndrome): Code(s): G25.81 - Restless legs syndrome Category: Medical Plan: Start gabapentin 100mg 1 capsule at bedtime as needed for RLS, use/side effects reviewed, including possibility for addiction/misuse, will start with #10 for 30 days. Pramipexole and ropinirole are contraindicated due to history of substance use disorder. (4) Peripheral neuropathy: Code(s): G62.9 - Polyneuropathy, unspecified Category: Medical Qualifiers: Peripheral neuropathy type: polyneuropathy, unspecified Qualified Code(s): G62.9 - Polyneuropathy, unspecified Plan: Reviewed testing ordered. Plan Meds tried: Keppra (agitation) Orders: Orders NE electromyogram (EMG) Today G62.9 - Polyneuropathy, unspecified NE nerve conduction velocity Today G62.9 - Polyneuropathy, unspecified Medications: New gabapentin 100 mg PO BEDTIME PRN 10 caps 0RF RLS 30 days Coding Level of Care Code Est Pt Level 4 (42437) Diagnoses Seizure disorder G40.909 Migraine without status migrainosus, not intractable, unspecified migraine type G43.909 Migraine type: unspecified Status migrainosus presence: without status migrainosus Intractability: not intractable RLS (restless legs syndrome) G25.81 Peripheral polyneuropathy G62.9 Peripheral neuropathy type: polyneuropathy, unspecified
--- OUTSIDE RECORDS SUMMARY | 2025-06-27 10:19 | XMS_ITS | Clinical Summary ---
Author Organization [facility] Address [address] [place] [address] Care Team Providers Care Para Educator Name Role Phone Pcp, No Primary Care Provider Unavailabl e Social History Tobacco Use Types Packs/Day Years Used Date Smoking Tobacco: Never Assessed Sex and Gender Information Value Date Recorded Sex Assigned at Not on file Legal Sex Male 3:35 PM EDT Gender Identity Not on file Sexual Orientation Not on file Plan of Treatment Health Maintenance Due Date Last Done Comments Hepatitis C Virus Screening 1981 HIV Screening 1994 DTaP/Tdap/Td Vaccines (1 - Tdap) 2000 Hepatitis B Vaccines (1 of 3 - 19+ 3-dose series) 2000 HPV Vaccines (1 - 3-dose SCD M series) 2008 COVID-19 Vaccine ( - 2023-2 5 season) 2024 Influenza Vaccine 06/10/2025 Pneumococcal Vaccine: Pediat stevie (0-5 Years) and At-Risk Patients (6 to 49 Years) Aged Out No longer eligible b ased on patient's age to complete this topic Insurance [facility] - PPO Care Teams Para Educator Relationship Specialty Start Date End Date Pcp, No PCP - General General Medicine 09/11/20
--- OUTSIDE RECORDS SUMMARY | 2025-06-27 10:19 | XMS_ITS | Patient Health Record ---
Author Organization [facility] Address [address] [place] [address] [address] [place] [address] Care Team Providers Care Emr Implementation Specialist Name Role Phone SIMONE BACON Primary Care Provider [phone] Allergies Allergen (clinical drug ingredient) Drug/Non Drug Allergy documented on EMR Reaction Allergy Type Onset Date Status levetiracetam Keppra rash Drug Allergy Act curtis Reason For Referral No Information Medications Medication SIG (Take, Route, Frequency, Duration) Notes Start Date End Date Status buPROPion HCl ER (Smoking Det) 150 MG TAKE TWO TABLETS BY MOUTH ONCE DAILY; Duration: 30 Active Imodium A-D Daily Active lamoTRIgine 25 MG 1 tablet Orally 2 TI MES A DAY 02/13/2024 Active Melatonin 5 MG 1 tablet in the even ing Orally Once a day Active traZODone HCl 100 MG 1 tablet at bedtime Orally Once a day; Duration: 30 days Active lamoTRIgine ER 50 MG 1 tablet Orally Twi ce a day Active Immunizations Vaccine Route Administration Date Status Comme nts COVID Moderna Unknown 02/26/2021 Administered COVID Moderna Unknown 03/26/2021 Administered Tdap Unknown 05/01/2021 Administered Social History Tobacco Use: Social History Observation Description Date Details (start date - stop date) Former Smoker NA - NA Tobacco Use/Smoking Question Answer Notes Are you a former smoker Problems Problem Type SNOMED Code ICD Code Onset Dates Problem Status W/U Status Risk Notes Problem Vitamin D deficiency (94161833) Vitamin D deficiency, unspecified (E55.9) Active confirmed Problem Obesity due to excess calories (351677815) Other obesity due to excess calories (E66.09) Active confirmed Problem Mixed hyperlipidemia (540852918) Mixed hyperlipidemia (E78.2) Active confirmed Problem Generalized anxiety disorder (13165525) Generalized anxiety disorder (F41.1) Active confirmed Problem Seizure (finding) (83641128) Other seizures (G40.89) Active confirmed Problem Insomnia (394358458) Insomnia, unspecified (G47.00) Active confirmed Encounters Encounter Location Date Provider Diagnosis [facility] [address] [address] 01/21/2025 SIMONE BACON Plan Of Treatment Future Test Test Name Order Date 25OH VITAMIN D 11/17/2023 COMPREHENSIVE METABOLIC PANEL 11/17/2023 LIPID PANEL 11/17/2023 TSH 11/17/2023 Glucose Fasting and 2hr-[id number] Hemoglobin [id number] 02/13/2024 Lipid Panel-[id number] 02/13/2024 Insurance Providers Payer Name Payer Address Payer Phone Subscriber Number Group Number Insured Name Patient Relationship to Insured Coverage Start Date Coverage End Date Cigna [address] [place] [phone] [id number] Bandar Marquez Self - patient is the insured 4 Medical (General) History Medical History History ICD Code insomnia generalized anxiety disorder seizure disorder SEE Dr Adrianna Shelby history of drug abuse and he was using PCP. Currently he is seeing a therapist once a week
== END 2025-06-27 10:26 | disposition home or self-care (01) ==
LOC: HO.HSM 09:41
PROVIDERS: PCP Family Medicine; Referring Provider Hospitalist; Visit Provider Registered Nurse
DX: G40.909 Epilepsy, unspecified, not intractable, without status epilepticus (principal); G43.909 Migraine, unspecified, not intractable, without status migrainosus; G25.81 Restless legs syndrome; G62.9 Polyneuropathy, unspecified
CPT/HCPCS: 99214

== ENCOUNTER → 2025-06-27 09:40 | Outpatient (BNVA) | payer OTHER, SELFPAY | PROVIDERS: PCP Family Medicine; Referring Provider Hospitalist; Visit Provider Registered Nurse | DX: G25.81 Restless legs syndrome (principal); G40.909 Epilepsy, unspecified, not intractable, without status epilepticus; G43.909 Migraine, unspecified, not intractable, without status migrainosus; G62.9 Polyneuropathy, unspecified; Z79.899 Other long term (current) drug therapy | CPT/HCPCS: 99212 ==

== ENCOUNTER 2025-07-04 12:42 | Outpatient (REF) | payer OTHER, SELFPAY ==
--- NOTE | 2025-07-04 12:51 | EMG_ITS ---
Chief complaint/brief history- polyneurpathy, numbess in feet Referred by- Dr Shelby Procedure done- NCV/EMG LISA LOWER EXT. Bilateral and peroneal motor studies were performed. Bilateral superficial peroneal, sural, and median lateral mixed plantars sensory studies were performed tibial H reflexes were obtained and EMG needle examination was performed. 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
--- OUTSIDE RECORDS SUMMARY | 2025-07-04 13:51 | XMS_ITS | Patient Health Record ---
Author Organization [facility] Address [address] [place] [address] [address] [place] [address] Care Team Providers Care Content Director Name Role Phone SIMONE BACON Primary Care Provider Allergies Allergen (clinical drug ingredient) Drug/Non Drug [...] Status Risk Notes Problem Vitamin D deficiency (45456062) Vitamin D deficiency, unspecified (E55.9) Active confirmed Problem Obesity due to excess calories (950109479) Other obesity due to excess calories (E66.09) Active confirmed Problem Mixed hyperlipidemia (452513279) Mixed hyperlipidemia (E78.2) Active confirmed Problem Generalized anxiety disorder (F41.1) Active confirmed Problem Seizure (finding) (32874857) Other seizures (G40.89) Active confirmed Problem Insomnia (510732509) Insomnia, unspecified (G47.00) Active confirmed Encounters Encounter Location Date Provider Diagnosis [facility] [address] [place] [address] 01/21/2025 SIMONE BACON Plan Of Treatment Future Test Test Name Order Date 25OH VITAMIN D 11/17/2023 COMPREHENSIVE METABOLIC PANEL 11/17/2023 LIPID PANEL 11/17/2023 TSH 11/17/2023 Glucose Fasting and 2hr-410486 4 Hemoglobin [id number] 02/13/2024 Lipid Panel-[id number] 02/13/2024 Insurance Providers Payer Name Payer Address Payer Phone Subscriber Number Group Number Insured Name Patient Relationship to Insured Coverage Start Date Coverage End Date [facility] [address] [place] [address] [id number] Bandar Marquez Self - patient is the insured 4 Medical (General) History Medical History History ICD Code insomnia generalized anxiety disorder seizure disorder SEE Dr Adrianna Shelby history of drug abuse and he was using PCP. Currently he is seeing a therapist once a week
--- OUTSIDE RECORDS SUMMARY | 2025-07-04 13:51 | XMS_ITS | Clinical Summary ---
Author Organization [facility] Address [address] [place] [address] Care Team Providers Care Lobby Porter Name Role Phone Pcp, No Primary Care [...] patient's age to complete this topic Insurance [facility] - PPO Care Teams Lobby Porter Relationship Specialty Start Date End Date Pcp, No PCP - General General Medicine 09/11/20
== END 2025-07-04 12:43 | disposition home or self-care (01) ==
LOC: HO.NEURO 12:42
PROVIDERS: Visit Provider Psychiatry & Neurology Neurology
DX: G62.9 Polyneuropathy, unspecified (principal); R20.0 Anesthesia of skin
CPT/HCPCS: 95886; 95912

== ENCOUNTER → 2025-07-04 12:51 | Outpatient (BNV) | payer OTHER, SELFPAY | PROVIDERS: Visit Provider Psychiatry & Neurology Neurology | DX: G57.83 Other specified mononeuropathies of bilateral lower limbs (principal) | CPT/HCPCS: 95886; 95913 ==

== ENCOUNTER 2025-07-22 09:32 | Outpatient (AMB) | payer OTHER, SELFPAY ==
--- NOTE | 2025-07-22 09:38 | MHC.OFFVIS ---
Intake Visit Reasons: results Allergies No Known Allergies Allergy (Verified 07/22/25 09:47) Medication List - Last Reconciled 07/22/25 by Claire Prater CNP amoxicillin 875 mg PO BID 7 days cetirizine (Zyrtec) 10 mg PO DAILY PRN dexmethylphenidate ER 40 mg PO QAM gabapentin 100 mg PO BEDTIME PRN 30 days lamotrigine 75 mg PO BID melatonin 5 mg PO BEDTIME sumatriptan succinate take 1 tab at onset of headache; if no relief may repeat 1 tab after at least 2 hrs; max = 4 tabs/24 hr PO HPI Comments Details: 44-year-old man with h/o poly drug abuse, at least two hospitalization in [place] and [place] related to drug overdose, in recent years only drinking alcohol, which he has stopped using completely since 01/2025, and depression, who was seen at [facility] in March of 2023 with difficulty speaking and was treated with ivtPA, but his imaging did not reveal any stroke. He had some behavioral symptoms in the past that could have been seizures or reaction to the drugs but he was never diagnosed with seizure disorder. An EEG at [facility] revealed minor abnormalities suggestive of seizure disorder and he was started on antiepileptic. He was doing okay. No seizures. No medication side effects with lamotrigine. Headaches have been okay. Sleep was sometimes disrupted from RLS symptoms in legs and arms with urge to move his arms and legs around. He sometimes had to get up and walk around. He tried gabapentin 100mg, but did not notice much difference. RLS symptoms were worse after he stopped drinking. He had been drinking from 07/2024-01/2025. He was using CPAP. Numbness and tingling to bottom of feet, L > R, which started around 04/2025 was unchanged. No significant pain. No falls. [facility] Medical History (Updated 07/22/25 @ 09:47 by Claire Prater CNP) Migraine RLS (restless legs syndrome) Insomnia Depression Alcohol abuse Seizure disorder Encephalopathy Social History Household Members: Significant Other Housing: Apartment Do you presently have visiting nurse or other home services: No Alcohol intake: unknown Patient Tobacco Use Status: Former Tobacco user Tobacco use type: Cigarette Substance Use Type: Unknown service: No Current occupational status: employed Review of Systems Const Denies chills, Denies daytime sleepiness, Denies difficulty sleeping, Denies fatigue, Denies fever(s), Denies frequent falls, Reports headache(s), Denies increased appetite, Denies poor appetite, Denies snoring, Denies weakness, Denies weight gain and Denies weight loss Eyes Denies loss of vision ENT Denies vertigo, Denies dizziness and Reports headache(s) Card Denies chest pain at rest, Denies chest pain with activity, Denies syncope, Denies leg edema and Denies palpitations Resp Denies snoring GI Denies constipation, Denies heartburn, Denies diarrhea and Denies nausea Denies urinary frequency, Denies urinary incontinence and Denies urinary urgency Musc Denies abnormal gait, Denies numbness and Denies tingling Skin/Breast Denies dry skin and Denies rash Neuro Denies abnormal gait, Denies vertigo, Denies dizziness, Denies syncope, Denies frequent falls, Reports headache(s), Denies lack of coordination, Denies loss of vision, Denies memory loss, Denies numbness, Reports restless legs, Denies seizure-like activity, Denies tingling, Denies paresthesias, Denies tremor(s) and Denies weakness Psych Denies anxiety, Denies depression, Denies auditory hallucinations, Denies memory loss, Denies visual hallucinations and Denies suicidal ideation Endo Denies fatigue and Denies palpitations Physical Exam Const Other: General Appearance:? normal, in no acute distress. Skin:? no rashes, no significant birthmarks. Heart:? S1, S2 normal, no murmurs. Lungs:? clear anteriorly and posteriorly. Extremities:? no edema. Psych:? alert, oriented, cognitive function intact, cooperative with exam. Neuro Other: Mental Status:?Normal attention, orientation, memory and affect.? Cranial Nerves:?Pupils are equal, round and reactive to light. External occular muscles are intact. Visual viramontes are full. Face is symmetrical. Facial sensations are normal. Tongue is midline. Palate elevates symmetrically. Shoulder shrugging is normal. Hearing to bedside conversation is normal. Sensory Exam:?Vibration and joint position intact. Coordination:?No ataxia,?no titubation.? Gait Exam: Within normal limits. Extrapyramidal System:?No tremor, rigidity with normal facial expressions.? Pronator Drift:?Not present.? Involuntary Movements:?No tremors seen.? Speech:?Normal.? Results Reviewed Results Reviewed: [address] [address] EMG / Nerve Conduction Report Signed Patient: Bandar Marquez MR#: [id number] : 1980 Acct:[id number] Age/Sex: 44 / M ADM Date: 07/04/25 Loc: .NEURO Attending Dr: Susanne Shelby MD Ordering Physician: Claire Prater CNP Date of Service: 07/04/25 Procedure(s): NE electromyogram (EMG); NE nerve conduction velocity Accession Number(s): [id number]; [id number] cc: Claire Prater CNP~ Chief complaint/brief history- polyneurpathy, numbess in feet Referred by- Dr Shelby Procedure done- NCV/EMG LISA LOWER EXT. Bilateral and peroneal motor studies were performed. Bilateral superficial peroneal, sural, and median lateral mixed plantars sensory studies were performed tibial H reflexes were obtained and EMG needle examination was performed. 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 (2) Migraine: Code(s): G43.909 - Migraine, unspecified, not intractable, without status migrainosus Category: Medical Qualifiers: Migraine type: unspecified Status migrainosus presence: without status migrainosus Intractability: not intractable Qualified Code(s): G43.909 - Migraine, unspecified, not intractable, without status migrainosus Plan: Continue sumatriptan 50mg 1 tablet as needed for migraine. (3) RLS (restless legs syndrome): Code(s): G25.81 - Restless legs syndrome Category: Medical Plan: Increase gabapentin 300mg 1 capsule at bedtime as needed for RLS, use/side effects reviewed, including possibility for addiction/misuse. Pramipexole and ropinirole are contraindicated due to history of substance use disorder. (4) Tibial neuropathy, bilateral: Code(s): G57.43 - Lesion of medial popliteal nerve, bilateral lower limbs Category: Medical Plan: NCV/EMG results reviewed. Plan Meds tried: Keppra (agitation) Medications: New gabapentin 300 mg PO BEDTIME 30 caps 0RF 30 days Discontinued gabapentin Discontinued Reason: Doctor's Order 100 mg PO BEDTIME 30 days PRN 10 caps 0RF RLS Coding Level of Care Code Est Pt Level 4 (62381) Diagnoses Seizure disorder G40.909 Migraine without status migrainosus, not intractable, unspecified migraine type G43.909 Migraine type: unspecified Status migrainosus presence: without status migrainosus Intractability: not intractable RLS (restless legs syndrome) G25.81 Tibial neuropathy, bilateral G57.43
--- OUTSIDE RECORDS SUMMARY | 2025-07-22 10:38 | XMS_ITS | Patient Health Record ---
Author Organization [facility] Address [address] [place] [address] [address] [place] [address] Care Team Providers Care Vice President Pharmacy Name Role Phone SIMONE BACON Primary Care Provider [phone] Allergies Allergen (clinical drug ingredient) Drug/Non Drug [...] Status Risk Notes Problem Vitamin D deficiency (06518021) Vitamin D deficiency, unspecified (E55.9) Active confirmed Problem Obesity due to excess calories (374669505) Other obesity due to excess calories (E66.09) Active confirmed Problem Mixed hyperlipidemia (455894560) Mixed hyperlipidemia (E78.2) Active confirmed Problem Generalized anxiety disorder (13252973) Generalized anxiety disorder (F41.1) Active confirmed Problem Seizure (finding) (56308362) Other seizures (G40.89) Active confirmed Problem Insomnia (067565200) Insomnia, unspecified (G47.00) Active confirmed Encounters Encounter Location Date Provider Diagnosis [facility] [address] [address] 01/21/2025 SIMONE BACON Plan Of Treatment Future Test Test Name Order Date 25OH VITAMIN D 11/17/2023 COMPREHENSIVE METABOLIC PANEL 11/17/2023 LIPID PANEL 11/17/2023 TSH 11/17/2023 Glucose Fasting and 2hr-656324 Hemoglobin [id number] 02/13/2024 Lipid Panel-[id number] 02/13/2024 Insurance Providers Payer Name Payer Address Payer Phone Subscriber Number Group Number Insured Name Patient Relationship to Insured Coverage Start Date Coverage End Date C[employer]a [address] [place] [phone] [id number] Bandar Marquez Self - patient is the insured 4 Medical (General) History Medical History History ICD Code insomnia generalized anxiety disorder seizure disorder SEE Dr Adrianna Shelby history of drug abuse and he was using PCP. Currently he is seeing a therapist once a week
--- OUTSIDE RECORDS SUMMARY | 2025-07-22 10:38 | XMS_ITS | Clinical Summary ---
Author Organization [facility] Address [address] [place] [address] Care Team Providers Care Network Operations Center Technician Name Role Phone Pcp, No Primary Care [...] (1 - 3-dose SCD M series) 2008 Influenza Vaccine 06/10/2025 COVID-19 Vaccine (1 - 2023-2 5 season) 2025 Pneumococcal Vaccine: Pediat stevie (0-5 Years) and At-Risk Patients (6 to 49 Years) Aged Out No longer eligible b ased on patient's age to complete this topic Insurance [facility] - PPO Care Teams Network Operations Center Technician Relationship Specialty Start Date End Date Pcp, No PCP - General General Medicine 09/11/20
== END 2025-07-22 09:55 | disposition home or self-care (01) ==
LOC: HO.HSM 09:32
PROVIDERS: PCP Family Medicine; Visit Provider Registered Nurse
DX: G40.909 Epilepsy, unspecified, not intractable, without status epilepticus (principal); G43.909 Migraine, unspecified, not intractable, without status migrainosus; G25.81 Restless legs syndrome; G57.43 Lesion of medial popliteal nerve, bilateral lower limbs
CPT/HCPCS: 99214

== ENCOUNTER → 2025-07-22 09:32 | Outpatient (BNVA) | payer OTHER, SELFPAY | PROVIDERS: PCP Family Medicine; Visit Provider Registered Nurse | DX: G25.81 Restless legs syndrome (principal); G43.909 Migraine, unspecified, not intractable, without status migrainosus; G40.909 Epilepsy, unspecified, not intractable, without status epilepticus | CPT/HCPCS: 99212 ==